=== PATIENT | male | born 1940 | race Caucasian/White ===

== ENCOUNTER → 2016-12-25 | Outpatient (CLI) | payer OTHER, MEDICARE | LOC: BMCIMAGING 12:28 | PROVIDERS: ATTEND Family Medicine | DX: S69.82XA Other specified injuries of left wrist, hand and finger(s), initial encounter (principal); S89.92XA Unspecified injury of left lower leg, initial encounter; W11.XXXA Fall on and from ladder, initial encounter ==

== ENCOUNTER 2017-07-24 16:14 | Inpatient (IN) | payer OTHER, MEDICARE ==
[2017-07-24] MEDS ORDERED: LIDOCAINE 1% 300 MG/30 ML SDV ONE (16:46)
[2017-07-24] MEDS ORDERED: fentaNYL 100 MCG/2 ML INJ ONE (16:47)
[2017-07-24] MEDS ORDERED: IOPAMIDOL (ISOVUE-370) 150 ML BTL IV ONE (16:47)
[2017-07-24] MEDS ORDERED: MIDAZOLAM 2 MG/2 ML VIAL ONE (16:48)
--- NOTE | 2017-07-24 16:54 | CPEKG ---
Heart Rate: 67 RR Interval: 896 P-R Interval: 200 QRSD Interval: 98 QT Interval: 440 QTC Interval: 465 P Saline: 69 QRS Saline: 12 T Wave Saline: 23 EKG Severity - ABNORMAL ECG - EKG Impression: SINUS RHYTHM EKG Impression: PROBABLE LEFT ATRIAL ABNORMALITY EKG Impression: LVH WITH SECONDARY REPOLARIZATION ABNORMALITY EKG Impression: ST elevation, likely secondary to LVH, consider AMI Electronically Signed By: Evon Lopez 24-Jul-2017 19:20:09
--- NOTE | 2017-07-24 17:00 | EDPHY ---
H & P Time Seen by Provider: 07/24/17 16:42 HPI/ROS: CHIEF COMPLAINT: Headache, vomiting HISTORY OF PRESENT ILLNESS: 77-year-old male with a history of hypertension presents with severe headache and vomiting. Onset of headache 5 days ago, severe and persistent since then. Associated with multiple episodes of vomiting. He has been mainly lying in bed for the past 5 days. History of uncontrolled hypertension, no prior medications. He has not seen a doctor in over 10 years. No fever, chest pain or shortness of breath. No prior known heart disease. REVIEW OF SYSTEMS: Constitutional: No fever, no recent illness Eyes: No visual changes ENT: No sore throat Respiratory: No cough, no shortness of breath Cardiac: No chest pain Gastrointestinal: no abdominal pain Genitourinary: No hematuria, no dysuria Musculoskeletal: No leg pain or swelling Skin: No rash Neurological: no numbness, no weakness Psychiatric: No depression Past Medical/Surgical History: Hypertension Social History: Smoking Status: Never smoked Physical Exam: General Appearance: Eyes closed, very hard of hearing, answers questions appropriately Eyes: Pupils equal and round, no conjunctival pallor or injection ENT, Mouth: Mucous membranes moist Neck: Normal inspection Respiratory: Lungs are clear to auscultation Cardiovascular: Regular rate and rhythm Gastrointestinal: Abdomen is soft and nontender Neurological: eyes closed, oriented x3, cranial nerves 2-12 intact, motor 5/5, sensory grossly intact Skin: Warm and dry, no rash Extremities: Nontender, no pedal edema Psychiatric: Mood and affect normal Constitutional: Initial Vital Signs Temperature (C) 36.2 C 07/24/17 16:21 Heart Rate 84 07/24/17 16:21 Respiratory Rate 16 07/24/17 16:21 Blood Pressure 206/106 H 07/24/17 16:21 O2 Sat (%) 91 L 07/24/17 16:21 O2 Delivery Mode Nasal Cannula O2 (L/minute) 2 Allergies/Adverse Reactions: No Known Allergies Allergy (Unverified 07/24/17 16:21) Home Medications: Medication Instructions Recorded Aspirin [Aspirin 325 mg (*)] 650 mg PO DAILY PRN 07/24/17 Herbals/Supplements -Info Only 1 ea PO DAILY 07/24/17 Medical Decision Making - Diagnostics EKG Interpretation: EKG interpreted by me reveals normal sinus rhythm, ST segment elevation in leads V1 through V3, LVH Imaging Results: Imaging Impressions Head CT 07/24/17 16:47 Impression: 1. No acute intracranial findings. 2. Diffuse cerebral atrophy with periventricular and subcortical low attenuation , most likely related to chronic microvascular ischemic gliosis. 3. High attenuation in normal-sized pituitary, which could be related to partial calcification, but is nonspecific. Findings discussed with Dr. Evon Lopez on July 24, 2017 at 1804 hours. Chest X-Ray 07/24/17 16:48 Impression: Borderline cardiomegaly with mild peribronchial thickening which could be related to fluid overload or mild bronchitis. ED Course/Re-evaluation: This patient presents with severe headache and vomiting and a markedly elevated blood pressure with a systolic blood pressure over 1-10. EKG is concerning for acute HI. Cardiac alert was called and the patient was seen by Dr. parkinson 0 emergency department. Stat echocardiogram revealed normal wall motion and LVH. Based on this, he will not go to the cardiac catheterization lab. He was sent for CT scan of the brain to rule out intracranial hemorrhage. Elevated blood pressure is persistent, with a systolic blood pressure of over 200, so a nicardipine drip was started. CT scan of the brain read by Dr. Duncan demonstrates microvascular disease, no acute hemorrhage or infarct. Results discussed with the patient and his . At this point, he still has a moderate headache, though the nausea has resolved. Blood pressure is 171/83. I consulted Dr. Robert for admission. The patient will be admitted to the PCU. The etiology of his headache and vomiting are most likely secondary to his severely elevated hypertension. However, there beat to be an alternative etiology for the headache, and he may need MRI of the brain if he continues to have a severe headache despite blood pressure management. Neurologic exam on serial exams remain normal. 6:30 p.m.-blood pressure is 160/79, the Cardene drip was held. Headache has completely resolved. I spent a total of 45 minutes of critical care time in obtaining history, performing a physical exam, bedside monitoring of interventions, collecting and interpreting tests and discussion with consultants but not including time spent performing procedures. Organ at risk: brain/heart Differential Diagnosis: Headache including but not limited to subarachnoid hemorrhage, migraine headache , tension headache and infectious causes such as meningitis, pharyngitis and sinusitis. - Data Points Laboratory Results: Laboratory Results 07/24/17 16:37 07/24/17 16:37 07/24/17 07/24/17 07/24/17 16:37 16:37 16:37 WBC 17.88 10^3/uL H 10^3/uL (3.80-9.50) RBC 5.35 10^6/uL 10^6/uL (4.40-6.38) Hgb 17.4 g/dL g/dL (13.7-17.5) Hct 46.9 % % (40.0-51.0) MCV 87.7 fL fL (81.5-99.8) MCH 32.5 pg pg (27.9-34.1) MCHC 37.1 g/dL H g/dL (32.4-36.7) RDW 11.7 % % (11.5-15.2) Plt Count 227 10^3/uL 10^3/uL (150-400) MPV 10.7 fL fL (8.7-11.7) Neut % (Auto) 91.3 % H % (39.3-74.2) Lymph % (Auto) 2.1 % L % (15.0-45.0) [place] % (Auto) 5.9 % % (4.5-13.0) Eos % (Auto) 0.0 % L % (0.6-7.6) Baso % (Auto) 0.1 % L % (0.3-1.7) Nucleat RBC Rel Count 0.0 % % (0.0-0.2) Absolute Neuts (auto) 16.31 10^3/uL H 10^3/uL (1.70-6.50) Absolute Lymphs (auto) 0.38 10^3/uL L 10^3/uL (1.00-3.00) Absolute Monos (auto) 1.06 10^3/uL H 10^3/uL (0.30-0.80) Absolute Eos (auto) 0.00 10^3/uL L 10^3/uL (0.03-0.40) Absolute Basos (auto) 0.02 10^3/uL 10^3/uL (0.02-0.10) Absolute Nucleated RBC 0.00 10^3/uL 10^3/uL (0-0.01) Immature Gran % 0.6 % % (0.0-1.1) Immature Gran # 0.11 10^3/uL H 10^3/uL (0.00-0.10) D-Dimer 2.94 ug/mLFEU H ug/mLFEU (0.00-0.50) Sodium 123 mEq/L L mEq/L (134-144) Potassium 3.2 mEq/L L mEq/L (3.5-5.2) Chloride 81 mEq/L L mEq/L (97-110) Carbon Dioxide 26 mEq/l mEq/l (22-31) Anion Gap 16 mEq/L mEq/L (8-16) BUN 12 mg/dL mg/dL (7-23) Creatinine 0.6 mg/dL L mg/dL (0.7-1.3) Estimated GFR > 60 Glucose 183 mg/dL H mg/dL (70-100) Calcium 9.5 mg/dL mg/dL (8.5-10.4) Phosphorus Magnesium Troponin I < 0.012 ng/mL ng/mL (0.000-0.034) NT-Pro-B Natriuret Pep 1470 pg/mL H pg/mL (0-450) Triglycerides Cholesterol Cholesterol Risk Factr LDL Cholesterol, Calc LDL Risk Factor VLDL Cholesterol Non-HDL Cholesterol HDL Cholesterol LDL/HDL Ratio Cholesterol/HDL Ratio TSH 07/24/17 16:33 WBC RBC Hgb Hct MCV MCH MCHC RDW Plt Count MPV Neut % (Auto) Lymph % (Auto) [place] % (Auto) Eos % (Auto) Baso % (Auto) Nucleat RBC Rel Count Absolute Neuts (auto) Absolute Lymphs (auto) Absolute Monos (auto) Absolute Eos (auto) Absolute Basos (auto) Absolute Nucleated RBC Immature Gran % Immature Gran # D-Dimer Sodium Potassium Chloride Carbon Dioxide Anion Gap BUN Creatinine Estimated GFR Glucose Calcium Phosphorus 3.0 mg/dL mg/dL (2.5-4.5) Magnesium 1.8 mg/dL mg/dL (1.6-2.3) Troponin I NT-Pro-B Natriuret Pep Triglycerides 51 mg/dL mg/dL (40-150) Cholesterol 182 mg/dL mg/dL (140-220) Cholesterol Risk Factr 0.4 (0.2-1.0) LDL Cholesterol, Calc 99 mg/dL mg/dL (80-100) LDL Risk Factor 0.6 (0.2-1.0) VLDL Cholesterol 10 mg/dL mg/dL (8-25) Non-HDL Cholesterol 109 mg/dL mg/dL (90-129) HDL Cholesterol 73 mg/dL H mg/dL (40-65) LDL/HDL Ratio 1.36 RATIO RATIO (1.00-3.64) Cholesterol/HDL Ratio 2.49 RATIO RATIO (1.00-4.97) TSH 1.200 uIU/mL uIU/mL (0.465-4.680) Medications Given: Discontinued Medications Nicardipine/Sodium Chloride (Cardene 0.1 Mg/Ml (Premix)) 200 mls @ 0 mls/hr IV EDNOW ONE; Titrate PRN Reason: Protocol Stop: 07/24/17 17:10 Last Admin: 07/24/17 18:54 Dose: 200 mls Sodium Chloride (Ns) 500 mls @ 1,000 mls/hr IV EDNOW ONE PRN Reason: Protocol Stop: 07/24/17 17:58 Last Admin: 07/24/17 17:35 Dose: 500 mls Ondansetron HCl (Zofran) 4 mg IVP EDNOW ONE Stop: 07/24/17 17:38 Last Admin: 07/24/17 17:37 Dose: 4 mg Departure - Departure Disposition: [facility] Acute Clinical Impression: Hypertensive crisis Condition: Serious
[2017-07-24 17:10] LABS: ANION GAP 16 mEq/L (8-16); CALCIUM 9.5 mg/dL (8.5-10.4); CARBON DIOXIDE 26 mEq/l (22-31); CHLORIDE 81 mEq/L (97-110); CREATININE 0.6 mg/dL (0.7-1.3); GLOMERULAR FILTRATION RATE > 60; GLUCOSE 183 mg/dL (70-100); POTASSIUM 3.2 mEq/L (3.5-5.2); SODIUM 123 mEq/L (134-144)
[2017-07-24] MEDS: niCARdipine/NACL 200 ML IV ONE ×2 (17:18→18:54)
[2017-07-24 17:21] LABS: TROPONIN I < 0.012 ng/mL (0.000-0.034)
--- NOTE | 2017-07-24 17:22 | PDCONSULT ---
[facility] Note: Cardiac alert notification. Cardiology Consult Reason for Consult: Cardiac alert notification with ST elevation in V1 V2 Chief Complaint: Headache Requesting Physician: Jessica History of Present Illness: 77-year-old male long history of untreated hypertension presents with a one- week history of terrible headache associated with vomiting. Patient has been in bed for the entire week. He came to the emergency department today feeling weak. Patient an EKG performed which showed ST elevation V1 V2. Cardiac alert was ordered. On my arrival the patient denies any chest pain. He has no shortness of breath. He denies PND orthopnea. He has had no palpitations syncope or near syncope. He has no focal neurologic complaints. He does have terrible headache. Patient has had longstanding hypertension which she treats by natural methods. He is not taking any medications. He has no history of hyperlipidemia. He is extraordinarily active without limitations. An echocardiogram was performed which shows concentric left ventricular hypertrophy that is moderate. His physical examination suggested a heart murmur. His consistent with aortic stenosis. This was confirmed by echo with mild aortic stenosis. At this point based on a normal echocardiogram and review of his EKG was elected to stand down the cardiac catheterization lab. There is no evidence of an acute coronary syndrome. This is more than likely hypertensive emergency/urgency. And will proceed in that manner for the time being. This was discussed with the patient's . Initial vital signs show blood pressure 210/120. Heart rate is 82. He is afebrile oxygenating normally. Respiratory rate is 16 Past Medical History PMH: Hypertension - Personal History Current Tetanus/Diphtheria Vaccine: Unsure Current Tetanus Diphtheria and Acellular Pertussis (TDAP): Unsure - Medical/Surgical History Hx Asthma: No Hx Chronic Respiratory Disease: No Hx Cardiac Disease: No Hx Diabetes: No Hx Renal Disease: No Hx Alcoholism: No Hx Cirrhosis: No Hx HIV/AIDS: No Hx Splenectomy or Spleen Trauma: No Other PMH: htn--does not take meds--controls naturally - Family History Significant Family History: No pertinent family hx - Social History Smoking Status: Never smoked Alcohol Use: None Drug Use: None Additional Social History: Review of Systems Review of Systems: - Review of Systems Constitutional: malaise, weakness. denies: chills, fever EENTM: no symptoms reported Respiratory: no symptoms reported Cardiac: no symptoms reported Gastrointestinal/Abdominal: no symptoms reported Genitourinary: no symptoms Musculoskelatal: no symptoms Skin: no symptoms Neurological: headache Hematologic/Lymphatic: no symptoms reported Immunologic/allergic: no symptoms reported Physical Exam Physical Exam: - Physical Exam General Appearance: other (Patient's eyes are closed, he is laying flat in bed without diaphoresis. He is easily responsive.) EENT: No: scleral icterus (R), scleral icterus (L) Neck: non-tender, full range of motion, supple Respiratory: chest non-tender, lungs clear, normal breath sounds Cardiac/Chest: normal peripheral pulses, regular rate, rhythm, gallop, systolic murmur. No: edema, JVD Peripheral Pulses: 1+: dorsalis-pedis (R), dorsalis-pedis (L), 2+: carotid (R), carotid (L), femoral (R), femoral (L) Abdomen: normal bowel sounds, non-tender, soft. No: bruit Back: Normal inspection. No: CVA tenderness Skin: normal color, warm/dry Lymphatic: no adenopathy Extremities: No: pedal edema, calf tenderness Neuro/Psych: alert. No: facial droop Assessment & Plan Assessment: 1. Hypertensive crisis (Acute) with abnormal ecg 2. Mild aortic stenosis 3. Headache with vomiting 4. Hyponatremia. 5. Hypokalemia. Discussion: 77-year-old male presenting with hypertensive crisis complicated by headache. EKG suggests left ventricular hypertrophy with strain and pseudo ST elevation pattern. Echocardiogram confirms left ventricular hypertrophy with mild aortic stenosis and no regional wall motion abnormalities. Recommendations are for slow and steady blood pressure control. Peak systolic pressure goal 160 tonight. Will begin with nicardipine IV and transition to oral agents tomorrow. Plan for head CT scan to rule out intracranial pathology. No evidence of angina or heart failure at this time. Until we clear his CT scan would not begin daily aspirin. Will follow serial cardiac enzymes and EKG overnight. Clinical follow-up in the ICU. Plan: Nicardipine IV for blood pressure control goal systolic pressure 160. Lab Data & Imaging Review 07/24/17 16:37 07/24/17 16:37 D-Dimer 2.94 ug/mLFEU (0.00-0.50) H 07/24/17 16:37 Sodium 123 mEq/L (134-144) L 07/24/17 16:37 Potassium 3.2 mEq/L (3.5-5.2) L 07/24/17 16:37 Chloride 81 mEq/L (97-110) L 07/24/17 16:37 Carbon Dioxide 26 mEq/l (22-31) 07/24/17 16:37 Anion Gap 16 mEq/L (8-16) 07/24/17 16:37 BUN 12 mg/dL (7-23) 07/24/17 16:37 Creatinine 0.6 mg/dL (0.7-1.3) L 07/24/17 16:37 Estimated GFR > 60 07/24/17 16:37 Glucose 183 mg/dL (70-100) H 07/24/17 16:37 Calcium 9.5 mg/dL (8.5-10.4) 07/24/17 16:37 Troponin I < 0.012 ng/mL (0.000-0.034) 07/24/17 16:37 NT-Pro-B Natriuret Pep 1470 pg/mL (0-450) H 07/24/17 16:37 Interpretation: Echocardiogram shows no pericardial effusion. Concentric left ventricular hypertrophy with preserved LV systolic function. Mild aortic stenosis. EKG additional interpertation: ECG today dated 07/24/2017 at 4:39 p.m. 51 shows sinus rhythm with left ventricular hypertrophy by voltage associated with pseudo infarct pattern with ST elevation V1 through V2
[2017-07-24] MEDS ORDERED: NS 500 ML IV ONE (17:29)
[2017-07-24 17:33] LABS: % IMMATURE GRANULYOCYTES 0.6 % (0.0-1.1); ABSOLUTE IMMATURE GRANULOCYTES 0.11 10^3/uL (0.00-0.10); ADD DIFF? NO; ADD MORPH? NO; ADD SCAN? NO; ATYPICAL LYMPHOCYTE FLAG 0 (0-99); FRAGMENT RBC FLAG 0 (0-99); HEMATOCRIT 46.9 % (40.0-51.0); HEMOGLOBIN 17.4 g/dL (13.7-17.5); LEFT SHIFT FLG 0 (0-99); LIPEMIA HEMOLYSIS FLAG 90 (0-99); MEAN CELL HEMOGLOBIN 32.5 pg (27.9-34.1); MEAN CELL HEMOGLOBIN CONCENTR. 37.1 g/dL (32.4-36.7); MEAN CELL VOLUME 87.7 fL (81.5-99.8); MEAN PLATELET VOLUME 10.7 fL (8.7-11.7); PLATELET CLUMPS FLAG 10 (0-99); PLATELET COUNT 227 10^3/uL (150-400); RED BLOOD CELL COUNT 5.35 10^6/uL (4.40-6.38); RED CELL DISTRIBUTION WIDTH 11.7 % (11.5-15.2)
[2017-07-24] MEDS ORDERED: ONDANSETRON 4 MG/2 ML VIAL ONE (17:34)
[2017-07-24] MEDS ORDERED: ONDANSETRON 4 MG/2 ML VIAL IVP ONE (17:37)
--- NOTE | 2017-07-24 17:40 | ECHO ---
[email or web address] [address] Main: [phone] Fax: [email or web address] Echocardiogram Name: SHANI TALAVERA MR#: [id number] Study Date: 07/24/2017 Study Time: 05:14 PM Date of : 1940 Age: 77 year(s) Height: 182.9 cm (72 in.) Weight: 74.84 kg (165 lb.) BSA: 1.96 m2 Gender: Male Examination: Echo Indication: Cardiac Alert, Hypertensive Crisis Image Quality: Contrast: Requested by: Evon Lopez BP: 241 mmHg/111 mmHg Heart Rate: Rhythm: Indication: Cardiac Alert, Hypertensive Crisis Procedure Staff Quality Control Expert: Benson Thacker Reading Physician: Peng Youssef Requesting Provider: Conclusions: No pericardial effusion. Moderate to severe concentric left ventricular hypertrophy normal ejection fraction of 73% with no regional wall motion abnormalities present. Diastolic dysfunction. Aortic valve calcification with mild aortic stenosis. Measurements: Chambers Valvular Assessment AV/MV Valvular Assessment TV/PV Normal Normal Normal Name Value Range Name Value Range Name Value Range Ao Jessica (MM): 3.2 cm (2.2 cm-3.7 AV Vmax: 2.94 m/s (1 m/s-1.7 TR Vmax: 2.38 mm/s ( - ) cm) m/s) TR PGmax: 23 mmHg ( - ) IVSd (2D): 1.6 cm (0.6 cm-1.1 AV maxP mmHg ( - ) syst. PAP: 28 mmHg ( - ) cm) AV meanP mmHg ( - ) PV Vmax: 0.96 m/s (0.6 m/s-0.9 LVDd (2D): 3.9 cm (4.2 cm-5.9 LVOT Vmax: 1.45 m/s (0.7 m/s-1.1 m/s) cm) m/s) PV PGmax: 4 mmHg ( - ) LVDs (2D): 2.3 cm (2.1 cm-4 RADHA (Vmax): 1.5 cm2 ( - ) cm) RADHA (VTI): 1.7 cm ( - ) LVPWd (2D): 1.5 cm (0.6 cm-1 MV E Vmax: 0.62 m/s ( - ) cm) MV A Vmax: 1.08 m/s ( - ) LVOTd 2.0 cm 2.0 cm mm MV E/A: 0.57 ( - ) LVEF (2D): 73 (>=54 %) Continued Measurements: Chambers Valvular Assessment TV/PV Name Value Name Value LADs Lon.9 cm CVP (est.): 5 mmHg LA Area: 20.9 cm2 Patient: SHANI TALAVERA Study Date: 07/24/2017 Page 1 of 2 05:14 PM Findings: Left Ventricle: Normal size left ventricle. Moderate to Severe concentric LV hypertrophy. Normal global systolic LV function. EF is 73 %. No regional wall motion abnormality. Diastolic dysfunction is present. . Right Ventricle: Normal size right ventricle. Normal RV function. Left Atrium: The left atrium is normal in size. Right Atrium: The right atrium is normal in size. Mitral Valve: The mitral valve is normal in appearance. Mild mitral valve leaflet calcification is present. Aortic Valve: There is moderate thickening of the aortic cusps. Moderate aortic cusp calcification is present. The Ao mean Pg 19mmHg with a Av Vmax of 2.9 m/s Mild calcific aortic valve stenosis. Tricuspid Valve: The tricuspid valve is normal in appearance and function. Pulmonic Valve: The pulmonic valve is normal in appearance and function. Trivial pulmonic valve regurgitation. Aorta: The aorta is normal. Pericardium: No pericardial effusion. (No Signature Object) Patient: SHANI TALAVERA Study Date: 07/24/2017 Page 2 of 2 05:14 PM [id number]
[2017-07-24] MEDS ORDERED: ONDANSETRON 4 MG/2 ML VIAL IVP PRN (18:13)
[2017-07-24] MEDS ORDERED: ONDANSETRON DISINTEGRATING 4 MG TAB PO PRN (18:13)
[2017-07-24] MEDS ORDERED: niCARdipine/NACL 200 ML IV SCH (18:30)
[2017-07-24 18:48] LABS: CHOLESTEROL 182 mg/dL (140-220); CHOLESTEROL/HDL RATIO 2.49 RATIO (1.00-4.97); HIGH DENSITY LIPOPROTEIN 73 mg/dL (40-65); LDL/HDL RATIO 1.36 RATIO (1.00-3.64); LOW DENSITY LIPOPROTEIN 99 mg/dL (80-100); MAGNESIUM 1.8 mg/dL (1.6-2.3); NON-HIGH DENSITY LIPOPROTEIN 109 mg/dL (90-129); TRIGLYCERIDE 51 mg/dL (40-150); VERY LOW DENSITY LIPOPROTEINS 10 mg/dL (8-25)
[2017-07-24] MEDS ORDERED: PROTOCOL POTASSIUM 1 DOSE MISC PRN (19:54)
[2017-07-24 19:58] LABS: COLOR YELLOW; LEUKOCYTE ESTERASE,URINE NEGATIVE (NEGATIVE); NITRITE,URINE NEGATIVE (NEGATIVE)
[2017-07-24 20:17] LABS: MUCUS TRACE /lpf (NONE-1+); RBC,URINE NONE SEEN /hpf (0-3)
--- NOTE | 2017-07-24 20:32 | GHP ---
[f rep st] HISTORY AND PHYSICAL DATE OF ADMISSION: 07/24/2017 CHIEF COMPLAINT: Headache and vomiting. HISTORY OF PRESENT ILLNESS: A 77-year-old male with a history of hypertension, diagnosed over 40 yea rs ago, for which he has never taken medications, who presents after having a month-long headache theodore t he describes as involving his entire head, that has progressed over the course of the 3 days prior to presentation, severe headache limiting activity with associated, almost intractable, nausea and vo miting. The patient has had no successful oral intake, downed a few sips of liquids provided by his over the course of the preceding 48 hours. The patient denies any chest pain. Denies shortness of breath. Described to his some gait instability in the week previous to his presentation. D enies numbness or tingling. Denies changes in his bowel habits. The patient does appear to have uri nary frequency and nocturia consistent with presumed prostate enlargement, although not diagnosed. Brad wray has a new diagnosis of cataracts, and has recently been treated with hearing aids. It was his suspicion that the combination of his hearing aids and visual deficits were leading to his headache, keeping him from presenting for earlier evaluation. PAST MEDICAL HISTORY: 1. Hypertension, untreated. 2. Cataracts. 3. Hearing loss. 4. Prostatic enlargement. SOCIAL HISTORY: Negative for tobacco, alcohol or illicit drugs. He is , lives with his of over 40 years. FAMILY HISTORY: Positive for hypertension, as well as stroke in his mother. ADVANCED DIRECTIVES: Patient is full cor, full tube. His is his medical decision maker. REVIEW OF SYSTEMS: A 10-point review of systems is negative with the exception of that reported in t he HPI. PHYSICAL EXAMINATION: VITAL SIGNS: Blood pressure on presentation is 217/111, heart rate 83, respir atory rate 19, satting 100% on 2 L, afebrile, 36.2. GENERAL: This is a thin-appearing elderly male, lying in the position in bed. HEENT: Notable for dry mucous membranes. Eyes: Negative for any icterus. CARDIAC: Patient is regular rate and rhythm. A loud systolic murmur is appreciated ac ross the right and left sternal borders. PULMONARY: Clear to auscultation bilaterally. GASTROINTES TINAL: Positive bowel sounds. ABDOMEN: Soft and nontender. MUSCULOSKELETAL: Negative for any low er extremity edema. SKIN: Negative for any rashes. NEUROLOGIC: He is alert and oriented x3, has d ense hearing loss. PSYCHIATRIC: Appears uncomfortable on my interview and examination. LABORATORY DATA: White count 17.8, hematocrit 46.9, platelets of 227. Sodium of 123, potassium of 3 .2, creatinine is 0.6. Blood glucose 183. BNP 1470. DIAGNOSTIC STUDIES: EKG, which I personally reviewed and interpreted, shows sinus rhythm. Normal ac cess, normal intervals. There is ST-elevation appreciated across the precordium consistent with LVH. Biphasic P-wave noted in V1, and U-wave in V4. Chest x-ray, which I personally reviewed and interp reted, shows no acute infiltrates. Noncontrast CT of the head shows no acute strokes or bleeds. ASSESSMENT AND PLAN: This is a 77-year-old male presenting with headache and vomiting. 1. Malignant hypertension. Patient is presenting with markedly elevated systolic blood pressures an d associated headache with nausea and vomiting. Electrocardiogram consistent with left ventricular h ypertrophy. Patient is initiated on a Cardene drip with successful control of his blood pressure, wi ll continue this upon transfer to the PCU. Patient will need to be transitioned to an oral regimen, would recommend likely the use of a combination drug such as Zestoretic, as it avoids beta-blockers, which the patient is worried could potentially slow him down, while combining 2 medications for maxim ized effect in 1 possible tablet. We will see what the patient's blood pressure does overnight befor e initiating an oral regimen. 2. Elevated BMP. A transthoracic echocardiogram was obtained from the emergency department, will fo llow with Cardiology. Patient does not have peripheral markers of heart failure and chest x-ray is n ot concerning for overt pulmonary edema. 3. Hyponatremia secondary to hypovolemia. We will cautiously rehydrate in the setting of uncontroll ed hypertension and recheck his lab values in the morning. 4. Hypokalemia in the setting of vomiting. We will replete per protocol and recheck in the morning. 5. Hyperglycemia. Patient does not carry a diagnosis of diabetes. We will send a hemoglobin A1c. 6. Acute leukocytosis. The patient does not have clear symptoms on review for occult infection. We will check a urinalysis based on his history of urinary frequency and potentially prostatic obstruct ion. Otherwise, will follow his symptoms after improved blood pressure control overnight. 7. Prophylaxis with sequential compression devices. 8. Diet: Cardiac. 9. Reported gait instability. The patient was experiencing this symptom prior to presentation. It is unclear to me if this is related to dehydration, electrolyte imbalance, or possible stroke related to his poorly controlled hypertension. We will wait to order additional brain imaging until we see the patient's neurologic examination after effective blood pressure control and rehydration. DISPOSITION: I expect greater than 2 midnights, as patient will require medication titration and pot entially additional diagnostic workup. I have discussed the case with the emergency room physician. Patient will be triaged to the PCU for Cardene drip and monitoring. /[id number]/MODL
[2017-07-24] MEDS ORDERED: POTASSIUM CL 10 MEQ TAB PO ONE (21:18)
[2017-07-24] MEDS: NS 1,000 ML IV SCH (21:30)
[2017-07-24] MEDS: ACETAMINOPHEN 325 MG TAB PO PRN (21:50)
[2017-07-25 04:51] LABS: % IMMATURE GRANULYOCYTES 0.4 % (0.0-1.1); ABSOLUTE IMMATURE GRANULOCYTES 0.06 10^3/uL (0.00-0.10); ADD DIFF? NO; ADD MORPH? NO; ADD SCAN? NO; ATYPICAL LYMPHOCYTE FLAG 0 (0-99); FRAGMENT RBC FLAG 0 (0-99); HEMATOCRIT 42.7 % (40.0-51.0); HEMOGLOBIN 15.8 g/dL (13.7-17.5); LEFT SHIFT FLG 0 (0-99); LIPEMIA HEMOLYSIS FLAG 90 (0-99); MEAN CELL HEMOGLOBIN 32.4 pg (27.9-34.1); MEAN CELL VOLUME 87.5 fL (81.5-99.8); MEAN PLATELET VOLUME 10.4 fL (8.7-11.7); PLATELET CLUMPS FLAG 0 (0-99); PLATELET COUNT 228 10^3/uL (150-400); RED BLOOD CELL COUNT 4.88 10^6/uL (4.40-6.38); RED CELL DISTRIBUTION WIDTH 11.7 % (11.5-15.2)
[2017-07-25 05:09] LABS: ALANINE AMINOTRANSFERASE 35 IU/L (21-72); ALBUMIN 3.4 g/dL (3.5-5.0); ALKALINE PHOSPHATASE 67 IU/L (38-126); ANION GAP 11 mEq/L (8-16); ASPARTATE AMINOTRANSFERASE 21 IU/L (17-59); BILIRUBIN,TOTAL 1.4 mg/dL (0.1-1.4); CARBON DIOXIDE 25 mEq/l (22-31); CHLORIDE 89 mEq/L (97-110); CREATININE 0.6 mg/dL (0.7-1.3); GLOMERULAR FILTRATION RATE > 60; GLUCOSE 126 mg/dL (70-100); POTASSIUM 3.6 mEq/L (3.5-5.2); SODIUM 125 mEq/L (134-144); TOTAL PROTEIN 6.2 g/dL (6.3-8.2)
[2017-07-25 05:12] LABS: INR 1.21 (0.83-1.16); PROTIME(PATIENT) 15.5 SEC (12.0-15.0)
--- NOTE | 2017-07-25 05:26 | PDMN ---
Medical Necessity Medical necessity: Pt meets INPT criteria per MD as of 07/24/17; est. LOS >2 MN for eval/tx of malignant hypertension, elevated BMP, hyponatremia secondary to hypovolemia, hypokalemia in the setting of vomiting, hyperglycemia, acute leukocytosis, gait instability per H&P.
[2017-07-25] MEDS ORDERED: POTASSIUM CL 10 MEQ TAB PO ONE ×2 (07:56→19:12)
[2017-07-25] MEDS: ACETAMINOPHEN 325 MG TAB PO PRN ×2 (09:29→16:56)
[2017-07-25] MEDS: ASPIRIN EC 81 MG TAB PO SCH (09:30)
[2017-07-25] MEDS: LOSARTAN POTASSIUM 50 MG TAB PO SCH (09:30)
--- NOTE | 2017-07-25 09:37 | SOAPPROG ---
SOAP Progress Note Assessment/Plan: Assessment:1. htn..crisis...long standing untreated home b/p..strong family h/o htn..pt improved today and willl start po meds and wean iv meds...hopefully home in a few days 2. hyponatremia..w/u with hospital service ...normal creat Plan:1. as ordered 07/25/17 09:35 Subjective: pt id seen with .he is doing better..b/p impogved..on low dose nicardipine...will add oral meds and follow..goal b/p 160mmhg Objective: Vital Signs Temp Pulse Resp BP Pulse Ox 37.0 C 83 22 H 165/94 H 95 07/25/17 07:49 07/25/17 07:49 07/25/17 07:49 07/25/17 08:29 07/25/17 07:49 Laboratory Results 07/25/17 04:24 07/25/17 04:24 07/24/17 07/25/17 07/26/17 05:59 05:59 05:59 Intake Total 1190 Output Total 1350 Balance -160 PT 15.5 SEC (12.0-15.0) H 07/25/17 04:24 INR 1.21 (0.83-1.16) H 07/25/17 04:24 Physical Exam - Physical Exam Respiratory: lungs clear Cardiac/Chest: regular rate, rhythm, No edema, No JVD ICD10 Worksheet Patient Problems: Problems Problem Status Onset Hypertensive crisis Acute
[2017-07-25] MEDS: NS 1,000 ML IV SCH (10:45)
--- NOTE | 2017-07-25 15:13 | HOSPPROG ---
Hospitalist Progress Note Assessment/Plan: 77 yo with a 40 year history of untreated htn is admitted with a month long headache, n/v for 3 days and abnormal gait. He has severe htn and hyponatremia on admission. # malignant htn with hypertensive encephalopathy. Discussed with Dr. Tomlinson. * Start oral medications * titrate off nicardipine * goal BP 160-170 systolic. # hyponatremia: likely multifactorial. Pt with n/v prior to admission and central encephalopathy from htn * follow sodium * check lytes and rule out other causes * has improved with IVF, so suspect some dehydration. * push oral solute intake, discussed with . # electrolyte abnormalities, replace # Hard of hearing # hypertensive encephalopathy: follow symptoms with improved BP control. Symptoms my take longer to resolve after BP stable. # Hyperglycemia: possibly from stress, will fu on HbA1C Subjective: pt new to me and chart reviewed. sleepy. no pain Objective: Vital Signs Temp Pulse Resp BP Pulse Ox 36.8 C 72 18 167/91 H 96 07/25/17 12:00 07/25/17 12:00 07/25/17 12:00 07/25/17 12:55 07/25/17 12:00 Laboratory Results 07/25/17 04:24 07/25/17 04:24 07/24/17 07/25/17 07/26/17 05:59 05:59 05:59 Intake Total 1190 Output Total 1350 200 Balance -160 -200 PT 15.5 SEC (12.0-15.0) H 07/25/17 04:24 INR 1.21 (0.83-1.16) H 07/25/17 04:24 - Physical Exam Constitutional: no apparent distress Eyes: PERRL Ears, Nose, Mouth, Throat: hard of hearing Cardiovascular: regular rate and rhythym, systolic murmur Respiratory: no respiratory distress, clear to auscultation Gastrointestinal: normoactive bowel sounds Genitourinary: no bladder fullness Skin: warm Neurologic: AAOx3, No facial droop Psychiatric: interacting appropriately, not anxious ICD10 Worksheet Patient Problems: Problems Problem Status Onset Hypertensive crisis Acute
[2017-07-25] MEDS: CARVEDILOL 6.25 MG TAB PO SCH (16:55)
[2017-07-25 18:26] LABS: POTASSIUM 3.6 mEq/L (3.5-5.2)
[2017-07-25] MEDS ORDERED: LOSARTAN POTASSIUM 50 MG TAB PO ONE (19:00)
[2017-07-25] MEDS ORDERED: hydrALAZINE 20 MG/ML VIAL IVP ONE (21:00)
[2017-07-26] MEDS: hydrALAZINE 20 MG/ML VIAL IVP PRN ×2 (00:43→14:11)
[2017-07-26] MEDS: ACETAMINOPHEN 325 MG TAB PO PRN (03:41)
[2017-07-26 05:21] LABS: CALCIUM 8.9 mg/dL (8.5-10.4); CARBON DIOXIDE 23 mEq/l (22-31); CHLORIDE 84 mEq/L (97-110); CREATININE 0.6 mg/dL (0.7-1.3); GLOMERULAR FILTRATION RATE > 60; GLUCOSE 133 mg/dL (70-100)
[2017-07-26 05:27] LABS: ANION GAP 12 mEq/L (8-16); POTASSIUM 3.4 mEq/L (3.5-5.2)
[2017-07-26 05:33] LABS: SODIUM 119 mEq/L (134-144)
--- NOTE | 2017-07-26 08:57 | SOAPPROG ---
SOAP Progress Note Assessment/Plan: Assessment:1. htn..crisis...long standing untreated home b/p..strong family h/o htn..off iv meds pt with labile htn..renal consult pending 2. hyponatremia..w/u with hospital service ...normal creat...renal consult pending Plan:1. as ordered 07/25/17 09:35 07/26/17 08:58 Subjective: pt had labile b/p over the night..c/w iv hydralazine..pt with hyponatremia..d/w dr hatfield...renal consult pending...continue a ordered...pt very hard of hearing pt has no cv c/o this AM Objective: Vital Signs Temp Pulse Resp BP Pulse Ox 36.7 C 75 20 193/111 H 91 L 07/26/17 08:24 07/26/17 08:24 07/26/17 08:24 07/26/17 08:24 07/26/17 08:24 Laboratory Results 07/25/17 04:24 07/26/17 04:20 07/25/17 07/26/17 07/27/17 05:59 05:59 05:59 Intake Total 1190 3148 Output Total 1350 1600 Balance -160 1548 PT 15.5 SEC (12.0-15.0) H 07/25/17 04:24 INR 1.21 (0.83-1.16) H 07/25/17 04:24 Physical Exam - Physical Exam Respiratory: lungs clear Cardiac/Chest: systolic murmur ICD10 Worksheet Patient Problems: Problems Problem Status Onset Hypertensive crisis Acute
[2017-07-26] MEDS ORDERED: CARVEDILOL 6.25 MG TAB PO SCH (09:07)
[2017-07-26] MEDS ORDERED: POTASSIUM CL 10 MEQ TAB PO ONE ×2 (09:58→19:30)
[2017-07-26] MEDS: ASPIRIN EC 81 MG TAB PO SCH (10:14)
[2017-07-26] MEDS: LOSARTAN POTASSIUM 50 MG TAB PO SCH (10:14)
[2017-07-26] MEDS: CARVEDILOL 6.25 MG TAB PO SCH ×3 (10:16→20:35)
--- NOTE | 2017-07-26 11:13 | HOSPPROG ---
Hospitalist Progress Note Assessment/Plan: 77 yo with a 40 year history of untreated htn is admitted with a month long headache, n/v for 3 days and abnormal gait. He has severe htn and hyponatremia on admission. Overnight he had increased blood pressure, he was given a dose of morphine and had a reaction to that with increased confusion. This morning he is oriented again. # malignant htn with hypertensive encephalopathy. Discussed with Dr. Tomlinson. * Increase the carvedilol to 12.5 mg twice a day * Continue losartan and consider adding Norvasc * Check renin and aldosterone levels * titrate off nicardipine * goal BP 160-170 systolic. # hyponatremia: likely multifactorial. Pt with n/v prior to admission and central encephalopathy from htn * follow sodium, drop last night. * Off IV fluids * Increase fluid restriction * Urine electrolytes consistent with SA ID H * Check renin and aldosterone levels * Discussed with Nephrology # BPH: Patient with urinary retention over 500 cc with difficult Burch catheterization placement. I discussed possible addition of Flomax and the and patient are resistant to any further medications despite possibly needing recurrent straight cathing. They are also not interested in any type of surgery at least for a year * Continue to monitor his bladder scans * Straight cath as needed * Continue to consider Flomax if patient is agreeable # electrolyte abnormalities, replace # Hard of hearing # hypertensive encephalopathy: follow symptoms with improved BP control. Symptoms my take longer to resolve after BP stable. # Hyperglycemia: possibly from stress, will fu on HbA1C Subjective: Very hard of hearing and sleeping. He is alert and oriented but you need to shout into his ear for him to be heard. He denies any chest pain or shortness of breath Objective: Vital Signs Temp Pulse Resp BP Pulse Ox 36.7 C 75 20 206/108 H 91 L 07/26/17 08:24 07/26/17 08:24 07/26/17 08:24 07/26/17 10:04 07/26/17 08:24 Laboratory Results 07/25/17 04:24 07/25/17 07/26/17 07/27/17 05:59 05:59 05:59 Intake Total 1190 3148 Output Total 1350 1600 Balance -160 1548 PT 15.5 SEC (12.0-15.0) H 07/25/17 04:24 INR 1.21 (0.83-1.16) H 07/25/17 04:24 - Physical Exam Constitutional: no apparent distress, not in pain Eyes: PERRL, EOMI Ears, Nose, Mouth, Throat: moist mucous membranes Cardiovascular: regular rate and rhythym, systolic murmur Respiratory: no respiratory distress, no rales or rhonchi, clear to auscultation Gastrointestinal: normoactive bowel sounds, soft, non-tender abdomen Genitourinary: no bladder fullness, other (Recent straight cathed) Skin: warm, normal color Neurologic: AAOx3 Psychiatric: interacting appropriately, other (Somnolent) ICD10 Worksheet Patient Problems: Problems Problem Status Onset Hypertensive crisis Acute
[2017-07-26 11:44] LABS: ANION GAP 9 mEq/L (8-16); CALCIUM 8.6 mg/dL (8.5-10.4); CARBON DIOXIDE 25 mEq/l (22-31); CHLORIDE 83 mEq/L (97-110); CREATININE 0.6 mg/dL (0.7-1.3); GLOMERULAR FILTRATION RATE > 60; GLUCOSE 146 mg/dL (70-100); POTASSIUM 3.2 mEq/L (3.5-5.2)
[2017-07-26 12:04] LABS: SODIUM 117 mEq/L (134-144)
--- NOTE | 2017-07-26 15:21 | ASMTCMCOM ---
CM Note CM Note Notes: 77 year old male admitted for HTN urgency, REILLY, Vomiting. He has a hx of HTN, Cataracs, [place], Prostate enlargement. Therapies have not evaluated patient. CM to follow for possible discharge needs. Date Signed: 07/26/2017 03:21 PM Electronically Signed By:Nancy Diaz LCSW
[2017-07-26] MEDS ORDERED: NS 500 ML IV ONE (15:32)
[2017-07-26] MEDS ORDERED: hydrALAZINE 20 MG/ML VIAL IVP PRN ×2 (16:14→18:10)
[2017-07-26 16:45] LABS: ANION GAP 7 mEq/L (8-16); CALCIUM 8.6 mg/dL (8.5-10.4); CARBON DIOXIDE 27 mEq/l (22-31); CHLORIDE 84 mEq/L (97-110); CREATININE 0.5 mg/dL (0.7-1.3); GLOMERULAR FILTRATION RATE > 60; GLUCOSE 135 mg/dL (70-100); POTASSIUM 3.9 mEq/L (3.5-5.2)
[2017-07-26 17:08] LABS: SODIUM 118 mEq/L (134-144)
--- NOTE | 2017-07-26 20:25 | GCON ---
[f rep st] CONSULTATION NEPHROLOGY CONSULTATION DATE OF CONSULTATION: 07/26/2017 REASON FOR CONSULTATION: Hypertension and hyponatremia. HISTORY OF PRESENT ILLNESS: I have been asked to evaluate this patient regarding both his hypertensi on and his hyponatremia. He is a 77-year-old gentleman who has been aware of a diagnosis of hyperten filiberto for decades, his estimates for 40 years. He has never been treated with antihypertensives, primarily because he does not ever see a physician. He has attempted to treat his hypertension by m aintaining what he interprets to be a healthy lifestyle. His has attempted to have him monitor his blood pressure as much as possible and she states that when it has been checked in the past, his systolic readings have typically been in the 180s. However, she also estimates that the last time hi s blood pressure was checked was at least 1 year ago. They do get labs drawn on an annual basis thro [facility] and she is unaware of any abnormal results. He has been extremely act iam and energetic for his age, however, in the past month, has been complaining of headaches. These have been associated with a decrease in his typical energy level and more recently severe nausea and vomiting, which began approximately 3 days prior to his admission on July 24. In the emergency ro om here, he was found to have a blood pressure in the 220s/110s. He was started on nicardipine drip and his blood pressure control was improved with systolic readings in the 170s. Yesterday, his nicar dipine was weaned off and he was started on losartan and carvedilol. He received a 2nd dose of losar varghese yesterday evening and this morning, his carvedilol dose was doubled from 6.25 to 12.5 mg. He did receive 1 p.r.n. dose of IV hydralazine overnight last night and then received a 2nd dose this after noon. Following this most recent dose, his blood pressure decreased from 170s to 140 and he became a cutely symptomatic with slurred speech and disorientation. He underwent an urgent noncontrast CT of the head which was unremarkable. His blood pressure has since recovered to the 160s and 170s and his believes his mental status is back to his baseline. CURRENT MEDICATIONS: Losartan 50 mg daily and carvedilol 12.5 mg twice daily. LABORATORY DATA: His serum sodium was 123 on admission Thursday evening and increased to 125 yesterday morning. He did receive IV fluids yesterday and his sodium decreased to 119 this morning. He was o n a modest fluid restriction of 1500 mL prior to today, but his oral intake greatly exceeded that yes terday by his 's estimation. His charted oral intake yesterday was 1450 cc, but she believes thi s is a tremendous underestimate. He is currently in the intensive care unit. His blood pressure ove r the past 2 hours has been in the 160s to 180s. His IV hydralazine dose has been revised. His crea tinine has been normal at 0.6 to 0.5. He has had some hypokalemia, which has been replaced on an as- needed basis. On my recommendation, plasma renin activity and aldosterone level were sent earlier to day. PAST MEDICAL HISTORY: 1. Untreated hypertension for decades, severe. 2. BPH. 3. Severe hearing loss. 4. Cataracts. PAST SURGICAL HISTORY: Vasectomy. ALLERGIES: No known drug allergies. CURRENT MEDICATIONS: Carvedilol 12.5 mg twice daily, losartan 50 mg daily, aspirin 81 mg daily, hydr alazine 5 to 10 mg IV q.1 hour p.r.n. systolic blood pressure greater than 190 or diastolic blood pre ssure greater than 108. SOCIAL HISTORY: He is originally from the [place], but has been in [place] for over 50 years. He i s retired. 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 He smoked briefly many years ago and drinks socially. FAMILY HISTORY: Negative for renal disease, but positive for multiple family members with hypertensi on. REVIEW OF SYSTEMS: Positive for headaches, nausea and vomiting prior to admission along with some in creasing fatigue. His does not believe he has had any weight loss. He has had significant hear ing loss and some visual loss over the past few months to years. He may have had some gait instabili ty prior to admission. This is not completely clear. She does believe that his headache has improve d since his hospital admission. He has chronic issues with urinary urgency that have been stable for years. He does not had any lower extremity edema. Aside from other positives on the HPI, the remai nder of a 10 organ system review is negative as reported by his . PHYSICAL EXAM: GENERAL: He is in no acute distress. VITAL SIGNS: Blood pressure 172/83, heart rat e is 77, oxygenation is 98% on room air. HEENT: Sclerae are anicteric, but conjunctivae are somewha t injected bilaterally. Oral mucosa is moist. NECK: Supple without JVD or lymphadenopathy. There a re no carotid bruits. LUNGS: Clear to auscultation bilaterally. Back: No CVA tenderness. HEART: Regular rate and rhythm, 2/6 systolic murmur. No gallops or rubs. ABDOMEN: Soft and nontender wit h normoactive bowel sounds. I do not appreciate hepatosplenomegaly, masses, or bruits. EXTREMITIES: There is no lower extremity edema. His feet are warm and appear well perfused. SKIN: There are n o skin rashes. NEURO: He does appear somewhat disoriented, but is awake and answers questions appro priately. There is no facial droop. : Burch catheter is absent. LABORATORY DATA: Sodium 118, potassium 3.9, chloride 84, CO2 27, BUN 17, creatinine 0.5, glucose 135 , calcium 8.6. Yesterday a urine osmolality was 552 with a urine sodium of 32. On admission, a urin alysis was positive for 2+ protein, trace ketones, and 3+ glucose. Of note, his serum glucose was 18 3 on admission. White blood cell count is 15.5, hemoglobin 15.8, platelets 228. An echocardiogram o n the 1st demonstrated a normal left ventricular ejection fraction with moderate to severe left ventr icular hypertrophy and diastolic dysfunction. Mild aortic stenosis was present. IMPRESSION AND PLAN: 1. Severe hypertension: This is longstanding and I suspect his systolic pressure has probably been greater than 200 for some time prior to admission. He was clearly symptomatic earlier today with a s ystolic blood pressure of 140, though it is also possible his systolic blood pressure reached a lower point than this before it was documented. He appeared to do okay with systolic pressures in the 170 s, therefore, I would try to avoid decreasing his pressure to any lower than 170. I would simply con tinue his current losartan and carvedilol dosing for now and I would reserve the use of p.r.n. hydral azine for systolic readings of greater than 200 and I would reduce the dose to 5 mg. I would avoid l owering his systolic blood pressure below 170 during this hospitalization, as this will likely take s ome time for his body to re-equilibrate. Plasma renin activity and aldosterone have been sent. If t hese are positive, then hyperaldosteronism could be evaluated. He should have some imaging of his ki dneys for completeness. I will request a renal ultrasound with Dopplers of the renal arteries. I do suspect that this is essential hypertension and we spent a large amount of time tonight discussing t he long-term adverse consequences of uncontrolled hypertension. His at least appears motivated to improve his blood pressure control, though it remains to be seen if the patient shares these feeli ngs. For now, I would be extremely reluctant to increase his medications unless he has persistent sy stolic elevations of greater than 200. 2. Hyponatremia: This is presumably relatively acute and could be related to either his recent naus ea or his headache. 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 However, his oral flui d intake yesterday appears to have been significantly greater than his 1500 cc fluid restriction and I suspect this was the main reason for the decrease in his sodium this morning. He is now on a tight er fluid restriction and I would simply continue this for now. I will repeat urine studies to see wh at his current urine concentration is. I suspect he may simply correct on his own with an appropriat e fluid restriction, though other measures such as salt tablets or low-dose Lasix may be required as well. Given his lack of medical followup over the past several decades, any firm diagnosis of syndro me of inappropriate antidiuretic hormone secretion should be evaluated more completely with a maligna ncy evaluation. At this time, I think he is at low risk for overly rapid correction and I do not fee l that frequent labs are necessary. 3. Hypokalemia: This has been replaced on an as needed basis. This should be continued. Thank you for the consultation. We will follow with you. /[id number]/MODL
[2017-07-27 00:38] LABS: HEMOGLOBIN A1C 5.4 % (4.0-6.0)
[2017-07-27 04:47] LABS: ANION GAP 9 mEq/L (8-16); CALCIUM 8.7 mg/dL (8.5-10.4); CARBON DIOXIDE 24 mEq/l (22-31); CHLORIDE 88 mEq/L (97-110); CREATININE 0.7 mg/dL (0.7-1.3); GLOMERULAR FILTRATION RATE > 60; GLUCOSE 111 mg/dL (70-100); POTASSIUM 3.7 mEq/L (3.5-5.2); SODIUM 121 mEq/L (134-144)
[2017-07-27] MEDS ORDERED: POTASSIUM CL 10 MEQ TAB PO ONE ×3 (06:48→19:02)
[2017-07-27] MEDS: ASPIRIN EC 81 MG TAB PO SCH (09:05)
[2017-07-27] MEDS: LOSARTAN POTASSIUM 50 MG TAB PO SCH (09:06)
[2017-07-27] MEDS: CARVEDILOL 6.25 MG TAB PO SCH ×3 (09:06→20:17)
--- NOTE | 2017-07-27 10:27 | SOAPPROG ---
[place] Progress Note Assessment/Plan: Assessment: 1. Hypertension He is pretty well controlled today. His partner wants him to be taking less medications so his blood pressure does not drop to the 140 range. His partner who is with him in the room says that will go to a medical doctors they have not been going for very long time. There is nothing that suggests an acute coronary syndrome, focal neurologic deficit or 1st stroke at this time. Nothing to suggest heart failure. He does have a systolic murmur. I will check and see if echoes been done. The murmur is consistent with mild aortic stenosis. He also has a soft holosystolic murmur at the left sternal border her which maybe some mitral regurgitation or tricuspid regurgitation. There is no signs of significant pulmonary hypertension. We will follow him very closely. All questions have been answered. I did review his case with the hospitalist. He has an echocardiographic study which shows very significant left ventricular hypertrophy mild aortic stenosis diastolic dysfunction among other findings. I think we want to work very hard on him to get his left ventricular hypertrophy resolved if we can possibly do that. All Plan: 07/27/17 10:26 07/27/17 10:28 Subjective: The patient is feeling well. He has no chest pain or shortness of breath He has no fevers or chills No cough No fever. He has no arm pain jaw pain. No lightheadedness dizziness No neurologic symptoms. Earlier today's blood pressure fell to the 140 range and his partner who is in the room with him felt like he seems like he was not being very responsive and she feels strongly that that was to be blood pressure dropped for him and wants cut back on the medications. The patient himself and she both agree that he is totally fine at this point time. Objective: Vital Signs Temp Pulse Resp BP Pulse Ox 36.7 C 74 23 H 184/97 H 95 07/27/17 08:00 07/27/17 10:00 07/27/17 10:00 07/27/17 10:00 07/27/17 10:00 Laboratory Results 07/25/17 04:24 07/27/17 04:20 07/26/17 07/27/17 07/28/17 05:59 05:59 05:59 Intake Total 3148 240 Output Total 1600 1575 Balance 1548 -1335 PT 15.5 SEC (12.0-15.0) H 07/25/17 04:24 INR 1.21 (0.83-1.16) H 07/25/17 04:24 Physical Exam - Physical Exam General Appearance: alert, no apparent distress Neck: supple Respiratory: rhonchi Cardiac/Chest: regular rate, rhythm, systolic murmur, No edema Abdomen: normal bowel sounds, non-tender, soft, No organomegaly Skin: warm/dry Extremities: non-tender, No calf tenderness Neuro/Psych: normal mood/affect ICD10 Worksheet Patient Problems: Problems Problem Status Onset Hypertensive crisis Acute
--- NOTE | 2017-07-27 10:55 | SOAPPROG ---
SOAP Progress Note Assessment/Plan: Assessment/Plan: HTN: likely longstanding essential hypertension. Renal US reviewed with no MANSOOR. He became symptomatic with dropping SBP to 140 yesterday, likely has been very hypertensive above 200s systolic at home for a long time. - Would recommend keeping SBP in 160-180 range, wound not drop below 160 at this time. - Will give low dose carvedilol today and monitor, can give losartan later if SBP >190. - Would reserve hydralazine only for if SBP is >200. - Will continue to monitor. Hyponatremia: repeat urine sodium down to 6, appears euvolemic, sodium up to 121 today with fluid restriction. - Would continue 1000ml fluid restriction. - Will continue to monitor sodium q12h. Hypokalemia: improved, would replace as needed. Renal cysts: one cyst on each kidney noted to have mild complexity, would recommend repeat US in 6 months to evaluate for stability. Subjective: No acute events overnight. Pt today is complaining of floaters in visual watkins , some have been going on from before but some seem new. He is hard of hearing. Objective: Vital Signs Temp Pulse Resp BP Pulse Ox 36.7 C 74 23 H 184/97 H 95 07/27/17 08:00 07/27/17 10:00 07/27/17 10:00 07/27/17 10:00 07/27/17 10:00 Laboratory Results 07/25/17 04:24 07/27/17 04:20 07/26/17 07/27/17 07/28/17 05:59 05:59 05:59 Intake Total 3148 240 Output Total 1600 1575 Balance 1548 -1335 PT 15.5 SEC (12.0-15.0) H 07/25/17 04:24 INR 1.21 (0.83-1.16) H 07/25/17 04:24 General: alert and oriented, no acute distress Eyes: EOMI, PERRL OP: clear CV: RRR Resp: nonlabored respirations Abd: Soft, NT Ext: no edema BLE Neuro: CN II-XII grossly intact except diminished hearing, no asterixis Psych: cooperative ICD10 Worksheet Patient Problems: Problems Problem Status Onset Hypertensive crisis Acute
[2017-07-27] MEDS ORDERED: CARVEDILOL 6.25 MG TAB PO SCH (10:58)
--- NOTE | 2017-07-27 11:02 | HOSPPROG ---
Hospitalist Progress Note Assessment/Plan: 77 yo with a 40 year history of untreated htn is admitted with a month long headache, n/v for 3 days and abnormal gait. He has severe htn and hyponatremia on admission. Overnight he had increased blood pressure, he was given a dose of morphine and had a reaction to that with increased confusion. This morning he is oriented again. # malignant htn with hypertensive encephalopathy. Discussed with Dr. Sotelo. Appreciate nephrology consult * Decrease Coreg to 6.25 since patient significantly symptomatic with BP at 140 * Continue losartan, was held this am for SBP = 140, can give later for SBP >190 * Check renin and aldosterone levels * Avoid hydralazine unless SBP > 200 * goal BP 160-190 systolic. * Can take weeks for his mental status to improve. # hyponatremia: likely multifactorial. Pt with n/v prior to admission and central encephalopathy from htn * continue fluid restriction * mentation is improving # BPH: Patient with urinary retention over 500 cc with difficult Burch catheterization placement. I discussed possible addition of Flomax and the and patient are resistant to any further medications despite possibly needing recurrent straight cathing. They are also not interested in any type of surgery at least for a year * Continue to monitor his bladder scans * Straight cath as needed * Continue to consider Flomax if patient is agreeable # electrolyte abnormalities, replace # Hard of hearing # hypertensive encephalopathy: follow symptoms with improved BP control. Symptoms my take longer to resolve after BP stable. # Hyperglycemia: Likely stress related, HbA1C is normal. Subjective: more alert today. no new complaints Objective: Vital Signs Temp Pulse Resp BP Pulse Ox 36.7 C 74 23 H 184/97 H 95 07/27/17 08:00 07/27/17 10:00 07/27/17 10:00 07/27/17 10:00 07/27/17 10:00 Laboratory Results 07/25/17 04:24 07/27/17 04:20 07/26/17 07/27/17 07/28/17 05:59 05:59 05:59 Intake Total 3148 240 Output Total 1600 1575 Balance 1548 -1335 PT 15.5 SEC (12.0-15.0) H 07/25/17 04:24 INR 1.21 (0.83-1.16) H 07/25/17 04:24 - Physical Exam Constitutional: no apparent distress, uncomfortable Eyes: PERRL, EOMI Ears, Nose, Mouth, Throat: hard of hearing Cardiovascular: regular rate and rhythym, systolic murmur Respiratory: no respiratory distress, no rales or rhonchi Gastrointestinal: normoactive bowel sounds, soft, non-tender abdomen, no palpable masses Skin: warm Musculoskeletal: generalized weakness Neurologic: No facial droop Psychiatric: interacting appropriately ICD10 Worksheet Patient Problems: Problems Problem Status Onset Hypertensive crisis Acute
[2017-07-27] MEDS: CALCIUM CARBONATE 500 MG CHEWABLE TAB PO PRN ×2 (12:20→18:37)
--- NOTE | 2017-07-27 16:18 | GCON ---
[f rep st] CONSULTATION PULMONARY AND CRITICAL CARE CONSULTATION DATE OF CONSULTATION: 07/27/2017 REASON FOR CONSULTATION: Evaluation and management of altered mental status in the setting of severe hypertension. HISTORY OF PRESENT ILLNESS: Mr. Barajas is a 77-year-old male with a history of hypertension for dec ades that has never been treated with medications, only with "healthy lifestyle." He has not had his blood pressure checked in over a year, but his systolic blood pressures tend to run over 180. He suazo s had headaches for the past month, as well as decreased energy and severe nausea and vomiting for th e last few days. In the emergency department, he had a blood pressure of 220/110. He was started on a nicardipine drip, which brought his systolic blood pressure down to the 170s. He was then started on losartan and carvedilol. The dose of carvedilol was increased from 6.25 to 12.5, and he received hydralazine, which resulted in a drop in his systolic blood pressure to 140, which was associated wi th slurred speech and disorientation. A CT scan was unremarkable. His blood pressure has since incr eased to the 160s to 170s, and his mental status is back to baseline. At baseline, he has some occas ional difficulty with memory, but overall he says there are no significant neurologic deficits, such as speech, memory, motor problems or mood changes. He has not walked in several days due to the naus ea and vomiting. Today, he walked and had some stumbling, so has been in bed since. REVIEW OF SYSTEMS: The 10-point review of systems is remarkable only for the presence of visual scin tillations that sound like floaters. PAST MEDICAL HISTORY: 1. Untreated hypertension. 2. BPH. 3. Severe hearing loss. MEDICATIONS: None at admission, except for aspirin. He is currently on carvedilol 6.25 twice daily. SOCIAL HISTORY: The patient lives in [place]. 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 He has a trivial hist ory of tobacco use. He drinks alcohol occasionally. FAMILY HISTORY: Unremarkable. REVIEW OF SYSTEMS: A 10-point review of systems adds nothing to the history of present illness. PHYSICAL EXAMINATION: GENERAL: The patient is awake, alert, and in no acute distress. VITAL SIGNS: Blood pressure is 141/70 with a heart rate of 79. He is afebrile. Oxygen saturations are 96% on r oom air. HEENT: Normocephalic and atraumatic. No icterus. NECK: No adenopathy. Trachea is midli ne. CHEST: Clear to auscultation. CARDIAC: Regular rate and rhythm without murmur. ABDOMEN: Sof t, nontender. Bowel sounds are present. EXTREMITIES: No clubbing, cyanosis, or edema. NEUROLOGIC: The patient is quite hard of hearing, but is able to follow commands. He has no gross motor or sen stephen deficits. LABORATORY DATA: A white blood count is 15.5, down from 17.9. Platelet count is 228 with a hemoglob in of 15.8. Sodium is 121, up from 117 at admission. His potassium is 3.7, creatinine 0.7. Urine s odium is 6. Urinalysis is positive for 2+ protein. Urine osmolality is 612. A CT scan of the head from July 26, shows no acute intracranial abnormalities. Images are revie wed by me. His initial CT scan showed similar findings, which included diffuse cerebral atrophy with findings typical for chronic microvascular ischemic changes. ASSESSMENT: 1. Altered mental status. This occurred in the setting of relative hypertension, with blood pressur e being brought down from the 220s down to 140. This has since improved, although his blood pressure still is in the 140s. The goal is to keep his blood pressure in the 170-190 range for the immediate future. Neurological function appears to have returned to normal despite his blood pressure running slightly lower than his goal blood pressure. 2. Gait instability. This may be due to deconditioning from being in bed for several days and havin g nausea and vomiting, but he also possibly may have had some neurologic sequelae from his chronic hy pertension and acute relative hypotension that has increased his gait instability. 3. Hematuria. The patient has had some hematuria since being straight catheterized a few days ago. However, he has been able to void. 4. Visual scintillations suggestive of floaters. 5. Hyponatremia. This is not responding to fluid restriction and being monitored by Nephrology. RECOMMENDATIONS: 1. Continue low-dose Coreg with close monitoring of blood pressure. 2. PT and OT consultations. 3. Consider ophthalmology consultation for visual scintillations. 4. Fluid restriction and follow serum sodium, as per Nephrology. /[id number]/MODL
[2017-07-27 18:56] LABS: ALBUMIN 2.9 g/dL (3.5-5.0); ANION GAP 8 mEq/L (8-16); CALCIUM 8.7 mg/dL (8.5-10.4); CARBON DIOXIDE 26 mEq/l (22-31); CHLORIDE 90 mEq/L (97-110); CREATININE 0.7 mg/dL (0.7-1.3); GLOMERULAR FILTRATION RATE > 60; GLUCOSE 108 mg/dL (70-100); POTASSIUM 3.4 mEq/L (3.5-5.2); SODIUM 124 mEq/L (134-144)
[2017-07-27] MEDS ORDERED: SUCRALFATE 1 GM/10 ML UDCUP PO PRN (22:42)
[2017-07-28 04:11] LABS: ALBUMIN 3.1 g/dL (3.5-5.0); ANION GAP 11 mEq/L (8-16); CALCIUM 8.8 mg/dL (8.5-10.4); CARBON DIOXIDE 24 mEq/l (22-31); CHLORIDE 95 mEq/L (97-110); CREATININE 0.8 mg/dL (0.7-1.3); GLOMERULAR FILTRATION RATE > 60; GLUCOSE 108 mg/dL (70-100); POTASSIUM 3.8 mEq/L (3.5-5.2); SODIUM 130 mEq/L (134-144)
[2017-07-28] MEDS ORDERED: POTASSIUM CL 10 MEQ TAB PO ONE ×2 (06:43→21:39)
[2017-07-28] MEDS: MBX SOLN 30 ML BOTTLE PO PRN ×2 (08:09→13:23)
[2017-07-28] MEDS: ASPIRIN EC 81 MG TAB PO SCH (08:11)
[2017-07-28] MEDS: LOSARTAN POTASSIUM 50 MG TAB PO SCH (08:11)
[2017-07-28] MEDS: CARVEDILOL 6.25 MG TAB PO SCH ×2 (08:22→17:42)
--- NOTE | 2017-07-28 11:02 | HOSPPROG ---
Hospitalist Progress Note Assessment/Plan: 77 yo with a 40 year history of untreated htn is admitted with a month long headache, n/v for 3 days and abnormal gait. He has severe htn and hyponatremia on admission. His mental status is slowly improving. He continues to be somewhat confused and weak however it is difficult to assess due to his severe hearing loss. His continues to be very concerned and is requesting Neurology consult to rule out strokes. # malignant htn with hypertensive encephalopathy. * Currently on Coreg 6.25 and losartan 50 mg daily blood pressures generally run in the 160-180 range although he has had some in the 130s to 140s he has not been symptomatic with these recent drops. * Continue losartan, was held this am for SBP = 140, can give later for SBP >190 * Check renin and aldosterone levels * Avoid hydralazine unless SBP > 200 * goal BP 160-190 systolic. * Can take weeks for his mental status to improve. * Will have Neurology consult for ongoing symptoms of encephalopathy that I suspect are multifactorial due to hyponatremia as well as hypertensive encephalopathy. # hyponatremia: likely multifactorial. Pt with n/v prior to admission and central encephalopathy from htn. Much improved today * continue fluid restriction, consider loosening fluid restriction given improved sodium * mentation is improving # BPH: Patient with urinary retention over 500 cc with difficult Burch catheterization placement. I discussed possible addition of Flomax and the and patient are resistant to any further medications despite possibly needing recurrent straight cathing. They are also not interested in any type of surgery at least for a year * Continue to monitor his bladder scans * Straight cath as needed * Continue to consider Flomax if patient is agreeable # electrolyte abnormalities, replace # Hard of hearing # hypertensive encephalopathy: follow symptoms with improved BP control. Symptoms my take longer to resolve after BP stable. # Hyperglycemia: Likely stress related, HbA1C is normal. Disposition: Will likely be discharged home once his blood pressure stabilized on oral medication use and he is improved mentally. I suspect 1-2 do well. Subjective: Much more alert today, denies pain, his floaters in his vision have improved. Objective: Vital Signs Temp Pulse Resp BP Pulse Ox 36.8 C 64 15 133/81 H 94 07/28/17 08:00 07/28/17 10:00 07/28/17 08:00 07/28/17 10:00 07/28/17 08:00 Laboratory Results 07/25/17 04:24 07/28/17 03:50 07/27/17 07/28/17 07/29/17 05:59 05:59 05:59 Intake Total 240 590 100 Output Total 1575 1450 200 Balance -1335 -860 -100 PT 15.5 SEC (12.0-15.0) H 07/25/17 04:24 INR 1.21 (0.83-1.16) H 07/25/17 04:24 - Physical Exam Constitutional: no apparent distress, unkempt Eyes: PERRL, anicteric sclera, EOMI Ears, Nose, Mouth, Throat: moist mucous membranes, hard of hearing Cardiovascular: regular rate and rhythym, systolic murmur Respiratory: no respiratory distress, clear to auscultation Gastrointestinal: normoactive bowel sounds, No tenderness Genitourinary: no bladder fullness Skin: warm Musculoskeletal: generalized weakness Neurologic: AAOx3 Psychiatric: interacting appropriately ICD10 Worksheet Patient Problems: Problems Problem Status Onset Hypertensive crisis Acute
--- NOTE | 2017-07-28 11:06 | SOAPPROG ---
SOAP Progress Note Assessment/Plan: Assessment: 1. HTN Longstanding poorly controlled HTN with almost certain arteriolosclerosis. Our goal SBP shoulg be 160 to 190. He appears very sensitive to even low doses of carvedilol. Will lower BP doses, and educate patient and family re CV disease, goals of therapy, target BP's. 2. MS, visual symptoms He has had some actual diplopia, dizziness, but has also had probable delerium. Actual neuro symptoms may have been perfusion related. Today, he is A&O at the time of my visit. 3. Hyponatremia He only acutely went down into teens. I view him as correcting appropriately, and at low risk of ODS. I will stop fluid restriction and follow. Plan: 07/28/17 11:02 Subjective: Doing some better Objective: Vital Signs Temp Pulse Resp BP Pulse Ox 36.8 C 64 15 133/81 H 94 07/28/17 08:00 07/28/17 10:00 07/28/17 08:00 07/28/17 10:00 07/28/17 08:00 Laboratory Results 07/25/17 04:24 07/28/17 03:50 07/27/17 07/28/17 07/29/17 05:59 05:59 05:59 Intake Total 240 590 100 Output Total 1575 1450 200 Balance -1335 -860 -100 PT 15.5 SEC (12.0-15.0) H 07/25/17 04:24 INR 1.21 (0.83-1.16) H 07/25/17 04:24 Physical Exam - Physical Exam General Appearance: no apparent distress, cachetic Respiratory: lungs clear Cardiac/Chest: regular rate, rhythm Extremities: normal inspection Neuro/Psych: oriented x 3 ICD10 Worksheet Patient Problems: Problems Problem Status Onset Hypertensive crisis Acute
--- NOTE | 2017-07-28 12:43 | SOAPPROG ---
XIANG Progress Note Assessment/Plan: Assessment: 1. Hypertension Plan: 07/27/17 10:26 07/27/17 10:28 07/28/17 12:41 Hypertension He is doing well today on the current adjustment of medications. I agree with Dr. Church about what our goal should be. I have answered all the patient's questions. Down the road he needs to have a nuclear stress test looking for coronary artery disease a We also really want to see what his lipids are as an outpatient to do everything we can for prevention of coronary disease. He Subjective: He is doing well today. He has no chest pain or chest tightness He is not feeling dizzy He is taking his medication acceptably. He has no new complaints . He tells me he has no nausea. Objective: Vital Signs Temp Pulse Resp BP Pulse Ox 36.9 C 65 18 140/91 H 94 07/28/17 11:54 07/28/17 11:54 07/28/17 11:54 07/28/17 11:54 07/28/17 11:54 Laboratory Results 07/25/17 04:24 07/28/17 03:50 07/27/17 07/28/17 07/29/17 05:59 05:59 05:59 Intake Total 240 590 200 Output Total 1575 1450 350 Balance -1335 -860 -150 PT 15.5 SEC (12.0-15.0) H 07/25/17 04:24 INR 1.21 (0.83-1.16) H 07/25/17 04:24 Physical Exam - Physical Exam General Appearance: alert Respiratory: rhonchi Cardiac/Chest: regular rate, rhythm, systolic murmur, No JVD Abdomen: non-tender, soft, No organomegaly Skin: warm/dry Extremities: No calf tenderness Neuro/Psych: alert ICD10 Worksheet Patient Problems: Problems Problem Status Onset Hypertensive crisis Acute
[2017-07-28] MEDS ORDERED: ALBUMIN 25% 100 ML IV ONE (16:16)
[2017-07-28 17:13] LABS: ANION GAP 8 mEq/L (8-16); CALCIUM 8.5 mg/dL (8.5-10.4); CARBON DIOXIDE 25 mEq/l (22-31); CHLORIDE 94 mEq/L (97-110); CREATININE 0.8 mg/dL (0.7-1.3); GLOMERULAR FILTRATION RATE > 60; GLUCOSE 120 mg/dL (70-100); POTASSIUM 3.5 mEq/L (3.5-5.2); SODIUM 127 mEq/L (134-144)
--- NOTE | 2017-07-28 17:38 | NEUROPROG ---
Assessment: [id number] CC: Hypertensive Encephalopathy HPI: Pt with long-standing untreated hypertension (average systolic 180). For the month prior to admission he complained of headaches, fatigue, and N/V. Went to [facility] on 07/24/17 and noted to have bp of 220/110. A head CT was unremarkable. He was placed in the ER and treated with slowly improving blood pressure. He has been confused at times but was improving. He was felt to have hypertensive encephalopathy but his wanted to see a neurologist to ensure it is not a stroke. I initially saw the patient on 07/28/17. His noted he seemed to become confused when he got a dose of hydralazine a few days ago. He also has complained of seeing scotomas in his vision. He feels much better today. His neurologic exam was normal other than showing some confusion on date and poor hearing. PMHx: untreated HTN, BPH, severe hearing loss Home Meds: aspirin SHx: FHx: NC ROS: Pt denied acute fever, total vision loss, active severe chest pain, respiratory failure, total body severe rash, total bowel/bladder incontinence, psychosis, active seizures, or active bleeding O: VS reviewed General: Drowsy Eyes: Fundoscopic exam not able to visualize optic disks CV: Heart RRR, no murmur, no carotid bruit Lungs: Clear to auscultation bilaterally, no rhonchi or rales Neuro: - Mental: . Oriented x person/place but not date . concentration appears reduced . speech fluency/comprehension normal . memory appears reduced . fund of knowledge appear intact - Cranial Nerves: . II: PERRL, VFFTC . III/IV/: EOMI, no nystagmus, normal smooth pursuits, no Ptosis . V: facial sensation intact to LT . VII: face symmetric to eye closure and smile . VIII: hearing intact to conversation . IX/X: uvula raises symmetrically . XI: SCM 5/5 B/L strength . XII: tongue protrudes midline w/nl strength - Motor: . Tone: normal tone in all 4 extremity . Strength: no pronator drift, strength 5/5 throughout (B/L delt, bic, tri, hand double corner cutter, hf/he, df/pf) - Reflexes: B/L bic/BR/patella 2/4 - Sensory: all 4 extremity intact to light touch - Coord: [id number] wnl, MOOKIE wnl, [id number] wnl - Gait: deferred - NIH SS 1 (wrong month) Labs: 07/24/17- LDL 99 07/25/17- CBC WBC 15.48, H1AC 5.4 07/28/17- Chem Na 130L Cl 95L Rads: 07/24/17- TTE: no pericardial effusion, mod to severe conc LVH, EF 73%, diastolic dysfunc, aortic valve calcification w/mild aortic stenosis 07/26/17- Head CT: Senescent features, with no acute intracranial abnormality identified on this unenhanced CT evaluation, or substantial change from 07/24/2017. (I personally visualized the images on 07/28/17) 07/27/17- 24 hour telemetry: no afib noted Assessment: 1. Hypertensive Encephalopathy: Clinical history supports this diagnosis but patients would like to fully exclude stroke so will check brain MRI. 2. Hyponatremia: Managed by hospitalist Plan: - Agree with treatment of HTN - Brain MRI w/o con to evaluate for stroke - If brain MRI unremarkable and patient doing well neurologically then no further inpatient w/u needed - F/U in neurology clinic 2-4 weeks after hospital discharge Neurology will review brain MRI and if unremarkable will sign off. Please reconsult for change in neurologic status of if anything is needed. Objective: Vital Signs Temp Pulse Resp BP Pulse Ox 37.1 C 70 14 122/61 H 94 07/28/17 15:50 07/28/17 15:50 07/28/17 15:50 07/28/17 16:00 07/28/17 15:50 Laboratory Results 07/25/17 04:24 07/28/17 16:25 07/27/17 07/28/17 07/29/17 05:59 05:59 05:59 Intake Total 240 590 200 Output Total 1575 1450 350 Balance -1335 -860 -150 PT 15.5 SEC (12.0-15.0) H 07/25/17 04:24 INR 1.21 (0.83-1.16) H 07/25/17 04:24 Allergies/Adverse Reactions: No Known Allergies Allergy (Unverified 07/24/17 16:21)
[2017-07-28 20:50] LABS: ALBUMIN 2.8 g/dL (3.5-5.0); ANION GAP 9 mEq/L (8-16); CALCIUM 8.5 mg/dL (8.5-10.4); CARBON DIOXIDE 28 mEq/l (22-31); CHLORIDE 93 mEq/L (97-110); CREATININE 0.8 mg/dL (0.7-1.3); GLOMERULAR FILTRATION RATE > 60; GLUCOSE 95 mg/dL (70-100); POTASSIUM 3.7 mEq/L (3.5-5.2); SODIUM 130 mEq/L (134-144)
[2017-07-29 09:27] LABS: ALBUMIN 2.6 g/dL (3.5-5.0); ANION GAP 9 mEq/L (8-16); CALCIUM 8.3 mg/dL (8.5-10.4); CARBON DIOXIDE 25 mEq/l (22-31); CHLORIDE 99 mEq/L (97-110); CREATININE 0.7 mg/dL (0.7-1.3); GLOMERULAR FILTRATION RATE > 60; GLUCOSE 89 mg/dL (70-100); POTASSIUM 3.7 mEq/L (3.5-5.2); SODIUM 133 mEq/L (134-144)
[2017-07-29 10:17] LABS: ALANINE AMINOTRANSFERASE 33 IU/L (21-72); ALKALINE PHOSPHATASE 50 IU/L (38-126); ASPARTATE AMINOTRANSFERASE 19 IU/L (17-59); BILIRUBIN,TOTAL 1.1 mg/dL (0.1-1.4); TOTAL PROTEIN 4.9 g/dL (6.3-8.2)
[2017-07-29] MEDS: MBX SOLN 30 ML BOTTLE PO PRN ×3 (10:24→22:17)
[2017-07-29] MEDS: ASPIRIN EC 81 MG TAB PO SCH (10:28)
[2017-07-29] MEDS: CARVEDILOL 6.25 MG TAB PO SCH ×2 (10:28→19:11)
--- NOTE | 2017-07-29 10:36 | SOAPPROG ---
XIANG Progress Note Assessment/Plan: Assessment: 1. Hypertension Plan: 07/27/17 10:26 07/27/17 10:28 07/28/17 12:41Cardiology ; Bp is responding to his meds . He will obviously have times of elevated pressures. Will sign off at this point Please let us know if we can help anytime. As outpt needs his pcp to order nuc ett and lipids . will discuss w hospitalist - who is beside me but on a call obviously very sad MRI results. 07/29/17 10:33 07/29/17 10:36 Objective: Vital Signs Temp Pulse Resp BP Pulse Ox 37.1 C 69 14 156/106 H 96 07/29/17 07:26 07/29/17 07:26 07/29/17 07:26 07/29/17 10:28 07/29/17 07:26 Laboratory Results 07/25/17 04:24 07/29/17 08:44 07/28/17 07/29/17 07/30/17 05:59 05:59 05:59 Intake Total 590 1100 Output Total 1450 1225 Balance -860 -125 PT 15.5 SEC (12.0-15.0) H 07/25/17 04:24 INR 1.21 (0.83-1.16) H 07/25/17 04:24 ICD10 Worksheet Patient Problems: Problems Problem Status Onset Hypertensive crisis Acute
--- NOTE | 2017-07-29 10:49 | SOAPPROG ---
XIANG Progress Note Assessment/Plan: Assessment: 1. Hypertension Plan: 07/27/17 10:26 07/27/17 10:28 07/28/17 12:41Cardiology ; Bp is responding to his meds . He will obviously have times of elevated pressures. Will sign off at this point Please let us know if we can help anytime. As outpt needs his pcp to order nuc ett and lipids . will discuss w hospitalist - who is beside me but on a call obviously very sad MRI results. 07/29/17 10:33 07/29/17 10:36 07/29/17 10:46 Have discussed his case w his all ?'s answered. neuro is taking care of neuro issues she has strong feelings re when and what bp meds he should get she will discuss c hosp - they will follow w pcp as she has so many ?'s weach bp kalyan that will get her the best results she will see that pcp orders lexiscan and be in touch if abnl Discussed w hospitalist will sign off. Objective: Vital Signs Temp Pulse Resp BP Pulse Ox 37.1 C 69 14 156/106 H 96 07/29/17 07:26 07/29/17 07:26 07/29/17 07:26 07/29/17 10:28 07/29/17 07:26 Laboratory Results 07/25/17 04:24 07/29/17 08:44 07/28/17 07/29/17 07/30/17 05:59 05:59 05:59 Intake Total 590 1100 Output Total 1450 1225 Balance -860 -125 PT 15.5 SEC (12.0-15.0) H 07/25/17 04:24 INR 1.21 (0.83-1.16) H 07/25/17 04:24 ICD10 Worksheet Patient Problems: Problems Problem Status Onset Hypertensive crisis Acute
[2017-07-29] MEDS ORDERED: POTASSIUM CL 10 MEQ TAB PO ONE (12:27)
--- NOTE | 2017-07-29 13:24 | SOAPPROG ---
SOAP Progress Note Assessment/Plan: Assessment: HTN better encephalopathy hyponatremia better Plan: try to keep SBP in the 140's-160's/80-low 90's continue coreg as is nice discussion with his , all questions answered to her satisfaction 07/29/17 13:19 Subjective: resting for the first time today, asked that I not wake him Objective: Vital Signs Temp Pulse Resp BP Pulse Ox 37.0 C 69 18 138/79 H 93 07/29/17 11:31 07/29/17 11:31 07/29/17 11:31 07/29/17 11:31 07/29/17 11:31 Laboratory Results 07/25/17 04:24 07/29/17 08:44 07/28/17 07/29/17 07/30/17 05:59 05:59 05:59 Intake Total 590 1100 Output Total 1450 1225 Balance -860 -125 PT 15.5 SEC (12.0-15.0) H 07/25/17 04:24 INR 1.21 (0.83-1.16) H 07/25/17 04:24 Physical Exam - Physical Exam General Appearance: other (resting) Respiratory: No rhonchi, No wheezing Cardiac/Chest: regular rate, rhythm Abdomen: soft Neuro/Psych: other (resting) ICD10 Worksheet Patient Problems: Problems Problem Status Onset Hypertensive crisis Acute
--- NOTE | 2017-07-29 14:45 | NEUROPROG ---
Assessment: Reviewed brain MRI and no acute stroke or other acute findings. Old, small punctate hemorrhage in brainstem likely from hypertension. Treatment is focused on good blood pressure control with goal < 140/90. No further inpt w/u needed at this time. F/U 2-4 weeks after discharge with me in neurology clinic. Call for any change in neurostatus or if any help needed. Objective: Vital Signs Temp Pulse Resp BP Pulse Ox 37.0 C 69 18 161/85 H 93 07/29/17 11:31 07/29/17 11:31 07/29/17 11:31 07/29/17 14:33 07/29/17 11:31 Laboratory Results 07/25/17 04:24 07/29/17 08:44 07/28/17 07/29/17 07/30/17 05:59 05:59 05:59 Intake Total 590 1100 Output Total 1450 1225 Balance -860 -125 PT 15.5 SEC (12.0-15.0) H 07/25/17 04:24 INR 1.21 (0.83-1.16) H 07/25/17 04:24 Allergies/Adverse Reactions: No Known Allergies Allergy (Unverified 07/24/17 16:21)
[2017-07-29 14:52] LABS: ALDOSTERONE SERUM <4.0 ng/dL (<=21)
--- NOTE | 2017-07-29 16:34 | ASMTCMCOM ---
CM Note CM Note Notes: Spoke w/pt and re; [facility]. Long conversation, willing but feels pt will want to go home. PT explained benefits of structured therapies in the senior living. CM spoke wMD and Ama at [facility], will shoot for Thursday. Ama will run benefits, CM w/f in am. DC Plan: [facility] Date Signed: 07/29/2017 04:34 PM Electronically Signed By:Sophie Elena RN
[2017-07-29] MEDS ORDERED: MELATONIN 3 MG TAB PO PRN (21:18)
--- NOTE | 2017-07-29 21:31 | HOSPPROG ---
Hospitalist Progress Note Assessment/Plan: Assessment: 77 yo M p/w hypertensive emergency and resultant acute encephalopathy Plan: # HTN emergency. Evidenced by SBP 210s w/ end organ failure (encephalopathy), likely 2/2 uncontrolled/untreated HTN and possibly acute rise in setting of microvascular ischemia - MRI w/o overt CVA, significant microvascular disease indicating his HTN has been untreated for quite some time - responsive to anti-HTN Rx, dosage to coreg reduced to 3.125 bid to keep SBP in target range of 160-190 and avoid watershed ischemia from rapid drop in SBP - eventual goal will be < 140, but this should be outpatient target and he should experience movement towards that goal over span of weeks - d/w both Dr. Sotelo and Dr. Palomino, do not recommend changes to above Rx at this time - patient will f/u Dr. Youssef as outpt # Acute encephalopathy. Evidenced by confusion, somnolence, disrupted level of interactiveness, all of which is a change from his baseline and 2/2 acute HTN emergency/pressure changes, potentially exacerbated by too rapid reduction in SBP - this has effected patient's appetite, sleep, and resulted in easy irritability - counseled patient and that we can focus on supportive/symptomatic care for certain discomforts like his esophageal discomfort (from vomiting), hiccups (thorazine PRN), and sleep (reduce interruptions o/n and provide melatonin PRN) - patient will likely require inpatient rehab, and plan is to reassess him for appropriateness tomorrow # Hyponatremia. Acute, potentially 2/2 hypovolemia in setting of N/V, s/p NS and now that he is euvolemic, on fluid restriction - currently 1.8L/day, if increasing hunger/thirst, liberalize - monitor daily level # Chronic BPH. Patient with urinary retention over 500 cc with difficult Burch catheterization placement - cont discussion re: straight cath vs. flomax Diet. Regular as nayeli PPx. SCDs, hold pharm given SBP Code. Full Dispo. ADD 07/31, pending stabilization of above. Subjective: patient w/ sore throat Objective: Vital Signs Temp Pulse Resp BP Pulse Ox 37.1 C 69 17 155/91 H 94 07/29/17 20:00 07/29/17 20:00 07/29/17 20:00 07/29/17 20:00 07/29/17 20:00 Laboratory Results 07/25/17 04:24 07/29/17 08:44 07/28/17 07/29/17 07/30/17 05:59 05:59 05:59 Intake Total 590 1100 1000 Output Total 1450 1225 700 Balance -860 -125 300 PT 15.5 SEC (12.0-15.0) H 07/25/17 04:24 INR 1.21 (0.83-1.16) H 07/25/17 04:24 - Time Spent With Patient Time Spent with Patient: greater than 35 minutes Time Spent with Patient: Greater than 35 minutes spent on this patients care, greater than 50% of time spent counseling, educating, and coordinating care regarding the above mentioned plan. - Pending Discharge Pending Discharge Within 48 Hours: Yes Pending Discharge Date: 07/31/17 Pending Discharge Time: 11:00 - Physical Exam Constitutional: uncomfortable, No not in pain (mild) Neurologic: AAOx3, other, No facial droop Psychiatric: anxious, flat affect, other (concentration 7/7), No agitated ICD10 Worksheet Patient Problems: Problems Problem Status Onset Hypertensive crisis Acute
[2017-07-29] MEDS ORDERED: LIDOCAINE 2% VISCOUS 15 ML UDCUP PO PRN (21:32)
[2017-07-29] MEDS ORDERED: chlorproMAZINE HCL 25 MG TAB PO PRN (21:33)
[2017-07-30 06:00] LABS: ANION GAP 9 mEq/L (8-16); CALCIUM 8.1 mg/dL (8.5-10.4); CARBON DIOXIDE 26 mEq/l (22-31); CHLORIDE 99 mEq/L (97-110); CREATININE 0.8 mg/dL (0.7-1.3); GLOMERULAR FILTRATION RATE > 60; GLUCOSE 77 mg/dL (70-100); POTASSIUM 3.6 mEq/L (3.5-5.2); SODIUM 134 mEq/L (134-144)
[2017-07-30 10:01] LABS: RENIN ACTIVITY PLASMA 0.7 ng/mL/h
[2017-07-30] MEDS: PANTOPRAZOLE SODIUM 40 MG VIAL IVP SCH (10:04)
[2017-07-30] MEDS: CARVEDILOL 6.25 MG TAB PO SCH ×2 (10:05→18:06)
[2017-07-30] MEDS: MBX SOLN 30 ML BOTTLE PO PRN (10:57)
--- NOTE | 2017-07-30 13:39 | SOAPPROG ---
SOAP Progress Note Assessment/Plan: Assessment: HTN better encephalopathy, patient and feel like it is better, still clearly not at baseline, however hyponatremia continues to get better Plan: try to keep SBP in the 140's-160's/80-low 90's continue coreg as is nice discussion with Michele and his , all questions answered to their satisfaction would like to follow up with me in [place] needs to check and record his BP at home 2-3 times weekly until he sees me 07/29/17 13:19 07/30/17 13:35 Subjective: feeling overall better denies cp sob nausea or vomiting still having trouble with constipation, but appetite is improving spirits good energy getting better slept well last night Objective: Vital Signs Temp Pulse Resp BP Pulse Ox 36.9 C 70 18 162/92 H 96 07/30/17 07:36 07/30/17 07:36 07/30/17 07:36 07/30/17 07:36 07/30/17 07:36 Laboratory Results 07/25/17 04:24 07/30/17 04:56 07/29/17 07/30/17 07/31/17 05:59 05:59 05:59 Intake Total 1100 1400 Output Total 1225 1150 100 Balance -125 250 -100 PT 15.5 SEC (12.0-15.0) H 07/25/17 04:24 INR 1.21 (0.83-1.16) H 07/25/17 04:24 Physical Exam - Physical Exam General Appearance: WD/WN, alert, thin Respiratory: lungs clear, No rhonchi, No wheezing Cardiac/Chest: regular rate, rhythm, No edema, No friction rub Abdomen: normal bowel sounds, non-tender, soft Extremities: No swelling Neuro/Psych: alert, normal mood/affect, oriented x 3 ICD10 Worksheet Patient Problems: Problems Problem Status Onset Hypertensive crisis Acute
--- NOTE | 2017-07-30 16:08 | ASMTCMCOM ---
CM Note CM Note Notes: MD had extensive conversation with pt and regarding [facility] and Ama from rehab came to see pt. Ama expressed to pt the benefits of the structured schedule at [facility] and that she anticipated a stay of 5-7 days. Pt's told CM that he would commit to 7 days. CM and to work out transportation in am. DC Plan: [facility] Thursday Date Signed: 07/30/2017 04:07 PM Electronically Signed By:Sophie Elena RN
--- NOTE | 2017-07-30 18:41 | HOSPPROG ---
Hospitalist Progress Note Assessment/Plan: Assessment: 77 yo M p/w hypertensive emergency and resultant acute encephalopathy Plan: # HTN emergency. Evidenced by SBP 210s w/ end organ failure (encephalopathy), likely 2/2 uncontrolled/untreated HTN and possibly acute rise in setting of microvascular ischemia - MRI w/o overt CVA, significant microvascular disease indicating his HTN has been untreated for quite some time - responsive to anti-HTN Rx, dosage to coreg reduced to 3.125 bid to keep SBP in target range of 160-190 and avoid watershed ischemia from rapid drop in SBP - counseled patient that eventual goal will be < 140, but this should be outpatient target and he should experience movement towards that goal over span of weeks - range o/n 126-162, unclear how many doses of coreg he has received, will investigate - counseled patient that as outpt, ambulatory BP monitoring can be useful to help dose Rx - avoid ASA in short term given small hemorrhage on MRI # Acute encephalopathy. Evidenced by confusion, somnolence, disrupted level of interactiveness, all of which is a change from his baseline and 2/2 acute HTN emergency/pressure changes, potentially exacerbated by too rapid reduction in SBP - this has effected patient's appetite, sleep, and resulted in easy irritability - cont supportive/symptomatic care for certain discomforts like his esophageal discomfort (from vomiting), hiccups (thorazine PRN), and sleep (reduce interruptions o/n and provide melatonin PRN) - counseled patient and extensively about possible benefits of inpt rehab, and he qualifies # Hyponatremia. Acute, potentially 2/2 hypovolemia in setting of N/V, s/p NS and now that he is euvolemic, off fluid restriction - monitor daily level # Chronic BPH. Patient with urinary retention over 500 cc with difficult Burch catheterization placement - cont discussion re: straight cath vs. flomax # Esophagitis. 2/2 vomiting, started on PPI to reduce additional irritation Diet. Regular as nayeli PPx. SCDs, hold pharm given SBP Code. Full Dispo. ADD 07/31, pending stabilization of above. Subjective: patient feels like he is progressing well Objective: Vital Signs Temp Pulse Resp BP Pulse Ox 36.9 C 70 18 143/75 H 93 07/30/17 15:49 07/30/17 18:06 07/30/17 15:49 07/30/17 18:06 07/30/17 15:49 Laboratory Results 07/25/17 04:24 07/30/17 04:56 07/29/17 07/30/17 07/31/17 05:59 05:59 05:59 Intake Total 1100 1400 600 Output Total 1225 1150 100 Balance -125 250 500 PT 15.5 SEC (12.0-15.0) H 07/25/17 04:24 INR 1.21 (0.83-1.16) H 07/25/17 04:24 - Time Spent With Patient Time Spent with Patient: greater than 35 minutes Time Spent with Patient: Greater than 35 minutes spent on this patients care, greater than 50% of time spent counseling, educating, and coordinating care regarding the above mentioned plan. - Physical Exam Constitutional: no apparent distress, appears nourished, not in pain, unkempt Ears, Nose, Mouth, Throat: hard of hearing Neurologic: AAOx3, No facial droop Psychiatric: interacting appropriately, not anxious, not encephalopathic, thought process linear, flat affect ICD10 Worksheet Patient Problems: Problems Problem Status Onset Hypertensive crisis Acute
[2017-07-31 05:51] LABS: ANION GAP 9 mEq/L (8-16); CALCIUM 8.3 mg/dL (8.5-10.4); CARBON DIOXIDE 26 mEq/l (22-31); CHLORIDE 101 mEq/L (97-110); CREATININE 0.8 mg/dL (0.7-1.3); GLOMERULAR FILTRATION RATE > 60; GLUCOSE 97 mg/dL (70-100); POTASSIUM 3.7 mEq/L (3.5-5.2); SODIUM 136 mEq/L (134-144)
[2017-07-31 07:41] VITALS: RESP 16
[2017-07-31] MEDS: PANTOPRAZOLE SODIUM 40 MG VIAL IVP SCH (09:15)
[2017-07-31] MEDS: CARVEDILOL 6.25 MG TAB PO SCH (09:15)
[2017-07-31] MEDS: ASPIRIN EC 81 MG TAB PO SCH (09:16)
--- NOTE | 2017-07-31 10:18 | SOAPPROG ---
SOAP Progress Note Assessment/Plan: Assessment/Plan: HTN: likely longstanding essential hypertension. Renal US reviewed with no MANSOOR. Pt now has SBP around 140s-160s on carvedilol alone and mental status has improved. - Would continue current dose of carvedilol. - Will have pt f/u in nephrology clinic with Dr. Palomino for further management. Hyponatremia: resolved, sodium now 136, no need for fluid restriction. Renal cysts: one cyst on each kidney noted to have mild complexity, would recommend repeat US in 6 months to evaluate for stability. Thank you for the interesting consult. Nephrology will sign off at this time, please call if you have any further questions or concerns. Subjective: No acute events overnight. Pt states that he still a little shakey but able to walk better. He has no more visual hallucinations or floaters now. He feels his thinking is clear. Objective: Vital Signs Temp Pulse Resp BP Pulse Ox 37.0 C 71 16 166/93 H 96 07/31/17 07:36 07/31/17 07:36 07/31/17 07:36 07/31/17 07:36 07/31/17 07:36 Laboratory Results 07/25/17 04:24 07/31/17 04:59 07/30/17 07/31/17 08/01/17 05:59 05:59 05:59 Intake Total 1400 975 Output Total 1150 900 300 Balance 250 75 -300 PT 15.5 SEC (12.0-15.0) H 07/25/17 04:24 INR 1.21 (0.83-1.16) H 07/25/17 04:24 General: alert and oriented, no acute distress Eyes; EOMI, PERRL OP: clear Ears: diminished hearing CV: RRR Resp: nonlabored respirations on RA Abd: Soft, ND Ext: no edema BLE Psych: cooperative, appropriate mood and affect ICD10 Worksheet Patient Problems: Problems Problem Status Onset Hypertensive crisis Acute
[2017-07-31 11:22] VITALS: BP 143/80; PULSE 64; TEMP 99; O2SAT 94
[2017-07-31] MEDS ORDERED: MAGNESIUM CITRATE 300 ML BOTTLE PO ONE (11:47)
[2017-07-31] MEDS ORDERED: BISACODYL 5 MG EC TAB PO ONE (11:47)
--- NOTE | 2017-07-31 14:59 | PDIAF ---
- Diagnosis Diagnosis: HTN emergency, encephalopathy Code Status: Full Code - Medication Management Discharge Medications: Medications to Continue on Transfer Herbals/Supplements -Info Only 1 ea PO DAILY 07/24/17 [Last Taken Unknown] Acetaminophen [Tylenol 325mg (*)] 650 mg PO Q4HRS PRN tab 07/31/17 [Last Taken Unknown] Calcium Carbonate [Tums 500MG (*)] 500 mg PO TID PRN tab.chew 07/31/17 [Last Taken Unknown] Carvedilol [Coreg (*)] 3.125 mg PO BIDMEAL tab 07/31/17 [Last Taken Unknown] Mbx Soln;Maalox/Diphen/Lido [Maalox/Diphenhydramine/Lido] 5 ml PO PRN PRN bottle 07/31/17 [Last Taken Unknown] Melatonin [Melatonin 3 MG (*)] 3 mg PO HS PRN tab 07/31/17 [Last Taken Unknown] Ondansetron Odt [Zofran Odt 4 mg (*)] 4 mg PO Q4HRS PRN tab 07/31/17 [Last Taken Unknown] Pantoprazole Sodium 40 mg PO DAILY #30 tablet.dr 07/31/17 [Last Taken Unknown] Polyethylene Glycol 3350 [Miralax 17 gm (*)] 17 gm PO DAILY PRN #30 pkt [Last Taken Unknown] Sennosides/Docusate Sodium [Senokot-S (OTC)] 1 each PO BID #60 tab 07/31/17 [ Last Taken Unknown] Sucralfate [Carafate 1gm/10ml Oral Liquid (*)] 1 gm PO ACHS PRN ml 07/31/17 [ Last Taken Unknown] Fci Antibiotics: NA Discharge Medications: Refer to the Discharge Home Medication list for PRN reason. PICC Care - Routine: N/A - Orders Services needed: Registered Nurse, Physical Therapy, Occupational Therapy, Speech Language Pathologist (Cognitive therapy) Isolation Type: None Oxygen: NA Diet Recommendation: no restrictions on diet Burch: Not applicable - Follow Up Care Current Providers and Referrals: NONE *PRIMARY CARE P,. [Primary Care Provider] - As per Instructions Sukh Palomino MD [Medical Doctor] - 3 days of d/c SNF/Rehab
--- NOTE | 2017-07-31 17:37 | ASDISCHSUM ---
Discharge Information Plan Status:Inpatient Rehab Medically Cleared to Leave: Discharge Date:07/31/2017 02:34 PM CM D/C Disposition:[facility] IP ADT D/C Disposition:[facility] IP Projected Discharge Date:07/31/2017 02:00 PM Transportation at D/C:Wheelchair Van Discharge Delay Reason: Follow-Up Date:07/31/2017 02:00 PM Discharge Slot: Final Diagnosis: Placement Information Referral Type:Rehabilitation Hospital Referral ID:[id number] Provider Name:[facility] Address 1:[address] Phone Number: Address 2: Fax Number: [facility]:[place] Selection Factors: State:[place] Patient Contact Information Contact Name:CORNELIUS Relationship: Address:[address] City:[place] Alternate Phone: State/Zip Code:[place] [address] Email: Financial Information Financial Class: Primary Plan Desc:MEDICARE INPATIENT Primary Plan Number:[id number] Secondary Plan Desc:[employer]/MDR SUPPLEMENT Secondary Plan Number:[id number] Assessment Information [facility] CM Progress Note CM Note CM Note Notes: 77 year old male admitted for HTN urgency, REILLY, Vomiting. He has a hx of HTN, Cataracs, [place], Prostate enlargement. Therapies have not evaluated patient. CM to follow for possible discharge needs. Date Signed: 07/26/2017 03:21 PM Electronically Signed By:Nancy Diaz LCSW [facility] CM Progress Note CM Note CM Note Notes: Spoke w/pt and re; [facility]. Long conversation, willing but feels pt will want to go home. 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 ASHLYN spoke wMD and Ama at [facility], will shoot for Thursday. Ama will run benefits, CM w/f in am. DC Plan: [facility] Date Signed: 07/29/2017 04:34 PM Electronically Signed By:Sophie Elena RN [facility] CM Progress Note CM Note CM Note Notes: had extensive conversation with pt and regarding [facility] and Ama from rehab came to see pt. Ama expressed to pt the benefits of the structured schedule at [facility] and that she anticipated a stay of 5-7 days. Pt's told CM that he would commit to 7 days. CM and to work out transportation in am. DC Plan: [facility] Thursday Date Signed: 07/30/2017 04:07 PM Electronically Signed By:Sophie Elena RN Case Management Discharge Plan Note Case Management Discharge Discharge Order Complete? Answers: Yes Patient to Obtain Answers: Other Notes: [facility] Medications Transportation Arranged Answers: Other Notes: [employer] Transport will Pick (Date 07/31/2017 02:00 PM & Time) Faxed Final Orders Answers: Yes Family Notified Answers: Yes Discharge Comments Notes: D/w , final orders faxed. Ama at [facility] notifiedSAMANTHA to call report. Date Signed: 07/31/2017 01:07 PM Electronically Signed By:Sophie Elena RN Intervention Information
--- NOTE | 2017-07-31 22:26 | PDDCSUM ---
Discharge Summary Discharge Summary: Date of admission: 07/24/17 Date of discharge: 07/31/17 Follow-up items: Outpatient ambulatory 24-hr blood pressure monitoring Discharge diagnoses: 1. HTN emergency 2. Acute encephalopathy 3. Acute hyponatremia 4. Chronic BPH 5. Acute esophagitis Consultations: Cardiology, Nephrology, Neurology Procedures: Brain MRI w/o acute infarct, diffuse microvascular ischemia CC: Acute nausea, vomiting Subjective: Feeling well at time of discharge, constipated, fatigued Physical exam: SBP 136-166, HR 70, Afeb, sat well on RA, AAOx3, pain 0/10, speech fluent, cooperative Labs: Cr 0.8, K 3.7, Na 136 Hospital course: 1. HTN emergency. Evidenced by SBP 210s w/ end organ failure (encephalopathy), likely 2/2 uncontrolled/untreated HTN and possibly acute rise in setting of microvascular ischemia, MR kathleen/ significant microvascular disease indicating his HTN has been untreated for quite some time. He was responsive to anti-HTN Rx, did experience a rapid reduction in SBP 2/2 hydralazine w/ acute somnolence as the effect, likely w/ some watershed ischemia but did not result in CVA on MRI. Initial anti-HTN Rx weaned to coreg 3.125 bid, and patient has tolerated past 3 doses w/ SBP range 136-166, effectively accomplishing the current goal of 140- 160. Over the following weeks, his goal should adjust down to SBP 140, but would avoid overtreating given his significant symptomatic response to SBP < 120. He and would like to undergo ambulatory 24-hr BP monitoring via [facility] with Dr. Palomino, and this can be arranged as an outpatient , to determine whether different doses should be used for AM vs. PM mgmt, and whether spikes in SBP are more temporally associated w/ acute stressors, as patient and believe. If so, behavioral modifications may be more appropriate as initial intervention. 2. Acute encephalopathy. Evidenced by confusion, somnolence, disrupted level of interactiveness, all of which are a change from his baseline and 2/2 acute HTN emergency, as well as potentially exacerbated by too rapid reduction in SBP which occurred w/ well-intentioned treatment. This has effected patient's appetite, sleep, and resulted in easy irritability, and during his hospitalization we focused on supportive/symptomatic care for certain discomforts like his esophageal discomfort (from vomiting), hiccups (thorazine PRN), and sleep (reduce interruptions o/n and provide melatonin PRN). At the time of discharge, his mentation seems to be at or very near baseline. 3. Hyponatremia. Acute, potentially 2/2 hypovolemia in setting of N/V, w/ some dilutional effect from volume resuscitation and lag in baroreceptor response, resulting in an SIADH component. Fluid restriction successful for complete correction, and able to liberate PO intake prior to DC. 4. Chronic BPH. Patient with urinary retention, resolved w/ need for ongoing straight cath. 5. Acute Esophagitis. 2/2 vomiting, started on PPI to reduce additional irritation. 6. Constipation. Ongoing at time of discharge, instructed by [facility] to hold on aggressive regimen prior to DC; recommend ongoing focus at [facility]. Meds at Discharge: Please see official discharge medication rec sheet, of note, Coreg 3.125 bid, Pantoprazole 40mg daily, bowel regimen. Time: > 30 minutes on direct patient care, as well as discharge planning and preparation.
== END 2017-07-31 14:34 | DRG 304 ==
LOC: F2W 20:00 → F2N 07-26 15:49 → F3E 07-28 15:44
PROVIDERS: ADMIT Hospitalist; ATTEND Hospitalist
DX: I16.1 Hypertensive emergency (principal); G93.49 Other encephalopathy; E87.1 Hypo-osmolality and hyponatremia; N40.1 Benign prostatic hyperplasia with lower urinary tract symptoms; K20.8 Other esophagitis; K59.00 Constipation, unspecified; E87.6 Hypokalemia; R33.9 Retention of urine, unspecified
CPT/HCPCS: 82088-90; 84244-90; 92507-GN; 92523-GN; 96374; 97110-GP; 97116-GP; 97161-GP; 97166-GO; 97530-GP; 97535-GO; G8978-GP-CK; G8979-GP-CJ; G8987-GO-CJ; G8988-GO-CI; G9165-GN-CK; G9166-GN-CI; J0360; J1644; J2250; J2405; J3010; Q9967

== ENCOUNTER 2017-07-30 11:34 | Inpatient (IN) | payer OTHER, MEDICARE ==
[2017-07-31] MEDS ORDERED: ONDANSETRON DISINTEGRATING 4 MG TAB PO PRN ×2 (15:30→15:54)
[2017-07-31] MEDS ORDERED: MELATONIN 3 MG TAB PO PRN ×2 (15:30→15:54)
[2017-07-31] MEDS ORDERED: MBX SOLN 30 ML BOTTLE PO PRN ×2 (15:30→15:54)
[2017-07-31] MEDS ORDERED: CALCIUM CARBONATE 500 MG CHEWABLE TAB PO PRN ×2 (15:30→15:54)
[2017-07-31] MEDS ORDERED: ACETAMINOPHEN 325 MG TAB PO PRN (15:30)
[2017-07-31] MEDS ORDERED: SUCRALFATE 1 GM/10 ML UDCUP PO PRN ×2 (15:30→15:54)
[2017-07-31] MEDS ORDERED: POLYETHYLENE GLYCOL 3350 17 GM PKT PO PRN ×2 (15:30→15:54)
[2017-07-31] MEDS ORDERED: BISACODYL 10 MG SUPP PR PRN ×2 (15:31→15:54)
[2017-07-31] MEDS ORDERED: TAMSULOSIN HCL 0.4 MG CAP PO SCH (15:45)
--- NOTE | 2017-07-31 16:10 | PDOREHIP ---
Admission [facility] - Admission - 3 Day Assessment Period Admission Date/Day 1: 07/31/17 Day 2: 08/01/17 Day 3: 08/02/17 - Active Diagnoses Comorbidities and Co-existing Conditions at Admission: 82822. None of the Above - Skin Conditions Unhealed Pressure Ulcer (1 or more/Stage 1 or >)-Admission: 0. No
--- NOTE | 2017-07-31 17:20 | GHP ---
[f rep st] HISTORY AND PHYSICAL POST ADMISSION PHYSICIAN EVALUATION AND REHABILITATION TREATMENT PLAN DATE OF ADMISSION: 07/31/2017 TIME OF EVALUATION: 1520. REFERRING FACILITY: [facility]. IMPAIRMENT GROUP: 2.1. DATE OF ONSET: 07/24/2017. REFERRING PHYSICIAN: Dr. Mills. CONSULTING PHYSICIANS: He was seen in consultation by Nephrology, Dr. Tolliver; Cardiology, Dr. Youssef, and Neurology Dr. Duval. REHABILITATION DIAGNOSES: Cognitive impairment and mobility deficits, status post hypertensive encephalopathy. ETIOLOGIC DIAGNOSIS: Nontraumatic brain dysfunction. HISTORY OF PRESENT ILLNESS: This patient was admitted to [facility] with a severe headache, nausea, and vomiting, associated with abnormal gait. He was diagnosed with malignant hypertension with blood pressure recorded as high as 217/111. He was initiated on a nicardipine intravenous drip, and he responded well. He was noted to be hyponatremic, which ultimately was attributed to likely elevated intracranial pressure and hypokalemia, which was likely due to vomiting. Hyponatremia corrected with intravenous fluids and a fluid restriction for several days, and ultimately resolved and the fluid restriction was discontinued. He was begun on a proton pump inhibitor, as well as sucralfate for esophageal discomfort after vomiting, and this discomfort has resolved. He received 1 dose of intravenous hydralazine for blood pressure above parameters and had an acute confusional episode subsequently. He had evaluation for a stroke including a brain MRI and head CTs that showed microvascular ischemic change, consistent with uncontrolled hypertension, and a nonacute punctate pontine hemorrhage. He had urinary retention with a bladder scan at 1 time greater than 500 and apparently had a difficult catheterization subsequently. Echocardiogram was done , which revealed mild aortic stenosis, LVH, ejection fraction of 73%, and diastolic dysfunction. He ultimately had adequate blood pressure control with systolics in the 130s to 160s and diastolics in the 70s to 90s on the last day before his discharge on a low dose of carvedilol alone. Previously had been he had been on losartan plus carvedilol. A renal ultrasound revealed a moderately complex cyst, but no signs of renovascular hypertension. Laboratory evaluation included evaluation of the renin aldosterone axis, which was not found to be abnormal. OTHER LABORATORIES AND STUDIES: urinalysis showed 2+ protein and trace glucose. 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 However, he had resolution of his hyponatremia. CBC showed an elevated white count, though the most recent was on 07/25/2017 was improved with a white blood cell count of 15.48. There was no left shift. There was a predominance of neutrophils and monocytes. Coagulation studies showed an INR of 1.21, PT of 15.5, and a D- dimer of 2.94. Serum chemistry showed hyponatremia with a sodium as low as 118. He also had hypokalemia with a potassium as low as 3.2. He had an elevated BNP at 1470, but otherwise was not showing signs or symptoms of heart failure. Lipid panel revealed a very high HDL at 73 and an LDL of 99. TSH was normal. PRECAUTIONS: He is a fall risk. He was noted to lose balance with term with turning. ACTIVE COMORBIDITIES: He has no active tier 1, tier 2 or tier 3 comorbidities. PAST MEDICAL HISTORY: 1. Longstanding hypertension. 2. Hearing loss. 3. Likely benign prostatic hypertrophy. PAST SURGICAL HISTORY: He denies any history of surgeries. PREHOSPITAL MEDICATIONS: He was not taking any medications. ADMISSION MEDICATIONS: 1. Acetaminophen 650 mg p.o. q.4 hours p.r.n. 2. Calcium carbonate 500 mg 3 times daily p.r.n. 3. Carvedilol 3.125 mg p.o. twice daily. 4. Maalox solution with diphenhydramine and lidocaine 5 mL p.o. p.r.n. abdominal discomfort. 5. Melatonin 3 mg p.o. at bedtime. 6. Ondansetron 4 mg p.o. q.4 hours p.r.n. 7. Pantoprazole 40 mg p.o. daily. 8. Polyethylene glycol 17 g p.o. daily p.r.n. 9. Senna/docusate 1 p.o. twice daily. 10. Sucralfate 1 g p.o. before meals and at bedtime p.r.n. ALLERGIES: There are no known drug allergies. FAMILY HISTORY: Noncontributory. PSYCHOSOCIAL HISTORY: He is retired. He lives with his . He has been active in his halfway. 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 He is a nonsmoker. REVIEW OF SYSTEMS: He has constipation x8 days. He had anorexia along with nausea and vomiting prior to his admission and then continued to have anorexia for the first several days of his hospitalization. He denies abdominal pain, and his appetite has returned. He reports that the sucralfate gave relief of abdominal discomfort, literally for only seconds, but the abdominal discomfort has resolved. He felt some lightheadedness, but no chaz vertigo on his drive over from [facility], but currently is without headache or lightheadedness. He denies vision changes, weakness, numbness or tingling of the extremities. He denies chest pain or palpitations. He denies dyspnea or cough. He denies dysuria. He has urinary frequency. At home he was accustomed to being up as often as 4 times at night, and he had a postvoid residual greater than 500 while in the hospital. He denies joint pain or joint swelling. He denies skin rash or skin breakdown. Otherwise, a 10-point review of systems is negative. PHYSICAL EXAMINATION: VITAL SIGNS: Vitals are not yet available in the chart. This morning at the hospital, blood pressure was 143/80; heart rate was 64; respiratory rate was 16; oxygen saturation was 94% on room air. Temperature was 37.2 degrees centigrade, and it is noted that he was sleeping when this blood pressure was taken. His weight is 63 kg for a body mass index of 21.8. GENERAL: This is a well-nourished, well-developed man, who appears younger than his chronologic age. He is cooperative and in no acute distress. HEENT: Extraocular movements are intact. Pupils are equal, round, and reactive to light. Mucous membranes are moist. Dentition is in good condition. He has uncrowded airway, Mallampati, class I. NECK: Supple. HEART: There is a regular rate and rhythm. There is a 2/6 systolic murmur heard best at the right sternal border. LUNGS: Clear to auscultation bilaterally. ABDOMEN: Soft, nontender, nondistended with normoactive bowel sounds. There is no palpable bladder. EXTREMITIES: There is no cyanosis, clubbing, or edema. Radial pulses are 2+ bilaterally. Dorsalis pedis pulses are 1+ bilaterally. NEUROLOGIC: He is alert and oriented to his situation, location, and month. He is off by 1 day on the date of the month. Cranial nerves 2-12 are grossly intact. There is no focal weakness. Sensation is intact to light touch. Plantar reflex is indeterminant bilaterally. There is no bradykinesia and no tremor. Current level of function per the pre-admission screen. Regarding diet, feeding , and swallowing: He was on a regular diet. He required setup. There was no dysphagia noted. For grooming, he required standby assist and voice cues. Dressing was accomplished with contact guard, seated. Regarding bladder, he was noted to be incontinent x1. He was continent of bowel. Bed mobility required standby assist. Transfers were accomplished with standby assist and voice cues to rise to a front-wheeled walker. He was noted to have a wide base of support. Balance required contact guard assist. Endurance was fair. He was able to ambulate 100 feet with contact guard and voice cues. He listed to the right, and he would lose his balance with turns. He was also noted to be able to ambulate 600 feet with a front-wheeled walker, contact guard assist, and voice cues. Regarding communication, he was noted to be hard of hearing. Regarding cognition, he was noted to have moderate impairment in attention, communication, and memory. He was considered a fall risk. IMPRESSION: This patient is a 77-year-old man who was hospitalized following headache, nausea, and vomiting, and diagnosed with hypertensive encephalopathy. He had some complications in his hospital course including altered mental status after 1 dose of intravenous hydralazine, which prompted an evaluation for cerebrovascular accident. MRI was consistent with hypertensive changes and a nonacute punctate left pontine hemorrhage. He was eventually stabilized, with renovascular hypertension and hyperaldosteronemia, ruled out, and finally blood pressure was controlled on adequately on a very low dose of carvedilol. Hyponatremia resolved completely, and he was off fluid restrictions. He was stable and ready for inpatient rehabilitation. His goal is to complete a rehabilitation stay and then discharge home with his and supportive services as needed. For a safe discharge it is anticipated that he will be independent with grooming and bed mobility, have modified independence for transfers, dressing, and ambulation with the least restrictive device on level and unlevel surfaces. His cognition will improve to allow him to be left alone at home safely for short periods of time. He will have therapy with Physical Therapy, Occupational Therapy, and Speech and Language Pathology for 60 minutes per day on 5-7 days of the week. His expected duration of stay is 5-7 days. It is anticipated that upon discharge he will continue to benefit from OT, SENIOR IOS DEVELOPER and PT on an outpatient basis. PLAN: 1. Cognitive deficits following hypertensive encephalopathy. Evaluation and treatment per Speech and Language Pathology. 2. Mobility deficits with impaired balance following hypertensive encephalopathy with possible contribution of a non-acute left pontine hemorrhage. Evaluation and treatment per PT and OT. 3. Hypertension has responded to a very low dose of carvedilol. This will be continued. It is thought that some of the complications following the hydralazine dose may have been due to overly rapid reduction of blood pressure. I have entered parameters for carvedilol to be held for a systolic pressure less than 140. 4. Urinary retention with possible BPH. We will have bladder scan for pre and postvoid residuals. Given his history of a difficult catheterization, I have sent a high threshold of 800 cc in the bladder for postvoid before attempting a catheterization. We will initiate tamsulosin today at 0.4 mg and monitor for improved lower urinary tract function. 5. History of nausea and vomiting. He no longer has symptoms of dyspepsia or abdominal pain. He never had any symptoms of dyspepsia or gastroesophageal reflux disorder prior to his hospitalization. We will not continue pantoprazole and will continue Maalox and calcium carbonate on a p.r.n. basis only. 6. Constipation with possible contribution of anorexia and vomiting. We will continue bowel program as ordered out of the hospital with scheduled senna/ docusate, and polyethylene glycol p.r.n. We will add bisacodyl suppository p.r.n. 7. Sleep-wake disturbance noted in the hospital. He has been prescribed melatonin. This can be continued for several days. However, it is anticipated that his sleep cycle will normalize and that after several days the melatonin can be discontinued. 8. Prophylaxis. He has ambulated 600 feet. He has no hemiparesis, and he is not at high risk for DVT. He will not receive pharmacologic prophylaxis. 9. Followup is planned with [facility], Dr. Sukh Palomino approximately 3 days following discharge from inpatient rehabilitation. He will need a repeat renal ultrasound in approximately 6 months regarding the renal cysts that were noted. He will need to establish with a primary care provider. /[id number]/MODL MTDD
[2017-07-31] MEDS ORDERED: CARVEDILOL 6.25 MG TAB PO SCH (18:00)
[2017-07-31] MEDS: SENNOSIDES/DOCUSATE SODIUM TAB PO SCH (19:28)
[2017-07-31] MEDS: CARVEDILOL 6.25 MG TAB PO SCH (19:28)
[2017-07-31] MEDS ORDERED: SENNOSIDES/DOCUSATE SODIUM TAB PO SCH (21:00)
[2017-08-01] MEDS: CARVEDILOL 6.25 MG TAB PO SCH ×2 (07:20→18:05)
[2017-08-01] MEDS: SENNOSIDES/DOCUSATE SODIUM TAB PO SCH ×3 (07:25→18:04)
[2017-08-01] MEDS ORDERED: Herbals/Supplements -Info Only PO SCH ×2 (09:00)
[2017-08-01] MEDS ORDERED: PANTOPRAZOLE SODIUM 40 MG TAB PO SCH (09:00)
[2017-08-01] MEDS: TAMSULOSIN HCL 0.4 MG CAP PO SCH ×2 (11:15→12:30)
[2017-08-01] MEDS: ACETAMINOPHEN 325 MG TAB PO PRN ×2 (12:27→17:53)
--- NOTE | 2017-08-01 12:31 | SOAPPROG ---
SOAP Progress Note Assessment/Plan: Assessment: * status post hospitalization for hypertensive urgency * Blood pressure little bit high this morning but back into the 0140-160 range * Had issues in the hospital possibly with symptoms from aggressive blood pressure lowering * Carvedilol may be causing his overall fatigue but would like to give it a few more days before switching to see if he can adjust * cognitive and mobility deficits * PT OT speech therapy * BPH/urinary retention * Encourage to take Flomax * Could increase dose if not enough affect * constipation * Bowel protocol * DVT prophylaxis * Ambulating well * Low risk 08/01/17 12:28 08/01/17 12:31 Subjective: Feels pretty wiped out after therapy and fatigue during the day. Postvoid residuals this morning was about 600. Patient refused Flomax but I have convinced him to take it Objective: Vital Signs Temp Pulse Resp BP Pulse Ox 37.1 C 76 16 151/89 H 94 08/01/17 08:47 08/01/17 08:47 08/01/17 08:47 08/01/17 09:06 08/01/17 08:47 07/31/17 08/01/17 08/02/17 05:59 05:59 05:59 Intake Total 240 240 Output Total 200 450 Balance 40 -210 Physical Exam - Physical Exam General Appearance: WD/WN, alert, no apparent distress Respiratory: lungs clear, No respiratory distress Cardiac/Chest: regular rate, rhythm, systolic murmur, No edema Abdomen: normal bowel sounds, non-tender, soft Neuro/Psych: alert, normal mood/affect ICD10 Worksheet Patient Problems: Problems Problem Status Onset Hypertensive crisis Acute
[2017-08-01] MEDS ORDERED: LISINOPRIL 2.5 MG TAB PO SCH (16:00)
[2017-08-02] MEDS: ACETAMINOPHEN 325 MG TAB PO PRN (07:45)
[2017-08-02] MEDS: CARVEDILOL 6.25 MG TAB PO SCH ×2 (08:02→18:04)
[2017-08-02] MEDS: SENNOSIDES/DOCUSATE SODIUM TAB PO SCH ×2 (08:02→17:56)
[2017-08-02] MEDS: TAMSULOSIN HCL 0.4 MG CAP PO SCH ×2 (10:35→13:11)
--- NOTE | 2017-08-02 21:34 | SOAPPROG ---
SOAP Progress Note Assessment/Plan: Assessment: * status post hospitalization for hypertensive urgency * Blood pressure better today * Had issues in the hospital possibly with symptoms from aggressive blood pressure lowering * fatigue is better. cont coreg for now * cognitive and mobility deficits * PT OT speech therapy * BPH/urinary retention * Encourage to take Flomax * I think that the retention may have been driving the BP. Encourages patient and to take the flomax * constipation * Bowel protocol * DVT prophylaxis * Ambulating well * Low risk * does not want any new meds introduced for a while 08/01/17 12:28 08/01/17 12:31 08/02/17 21:32 Subjective: feels a lot better today, more energy. bp better. less urinary retention Objective: Vital Signs Temp Pulse Resp BP Pulse Ox 36.7 C 77 16 138/88 H 95 08/02/17 20:00 08/02/17 20:00 08/02/17 20:00 08/02/17 20:00 08/02/17 20:00 08/01/17 08/02/17 08/03/17 05:59 05:59 05:59 Intake Total 240 1298 1750 Output Total 200 2200 550 Balance 40 -902 1200 Physical Exam - Physical Exam General Appearance: WD/WN, alert Respiratory: lungs clear, normal breath sounds, No respiratory distress Cardiac/Chest: regular rate, rhythm, No edema Neuro/Psych: alert, normal mood/affect, oriented x 3 ICD10 Worksheet Patient Problems: Problems Problem Status Onset Hypertensive crisis Acute
[2017-08-03] MEDS: CARVEDILOL 6.25 MG TAB PO SCH ×2 (07:38→18:02)
[2017-08-03] MEDS: SENNOSIDES/DOCUSATE SODIUM TAB PO SCH (07:41)
[2017-08-03] MEDS ORDERED: SENNOSIDES/DOCUSATE SODIUM TAB PO PRN (09:19)
--- NOTE | 2017-08-03 09:51 | SOAPPROG ---
SOAP Progress Note Assessment/Plan: Assessment: # Cognitive deficits following hypertensive encephalopathy. * Deficits to inference/abstraction, pathfinding, attention to detail, executive function. Impulsive. * Continue Speech and Language Pathology. 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 * Initial FIM 98 on 08/03/17. Hernandez balance inventory 44/56. Ambulates with standby assist to contact guard assist with front wheeled walker. Climbed 12 stairs 1 rail standby assist. She accomplished car transfer with standby assist. Independent for dressing and independence to supervision level for ADLs overall. * Continue PT and OT. # Hypertension has responded to a very low dose of carvedilol. * Continue carvedilol; hold for systolic blood pressure less than 140. * Query whether urinary retention plus life stress may have contributed to hypertensive urgency. * Eventual blood pressure goal is certainly less than 140/90 and probably 120/80 ; discussed with patient and . # Urinary retention with possible BPH. * Residuals have been in the range of 425-1000 cc. Nocturia has been improved on tamsulosin x2 doses. * Due to concern regarding intraoperative floppy iris syndrome, will discontinue tamsulosin. Gave a prescription for alfuzosin. Advised discussion with airport maintenance laborer regarding use of alpha blockers prior to cataract surgery. # History of nausea and vomiting. * Resolved. * No dyspepsia or abdominal pain. No history of dyspepsia or gastroesophageal reflux disorder. Discontinue pantoprazole; continue Maalox and calcium carbonate on a p.r.n. basis only. # Constipation with possible contribution of anorexia and vomiting. * Resolved. * Change laxatives to p.r.n. starting 08/03/2017. # Sleep-wake disturbance noted in the hospital. * Resolved. Discontinue melatonin 08/03/2017. # Prophylaxis. He has ambulated 600 feet. He has no hemiparesis, and he is not at high risk for DVT. He will not receive pharmacologic prophylaxis. Attended staffing, 15 min. Discussed with case management, nursing, dietitian, PT, OT, OVERNIGHT STOCKER. Set discharge date for 08/05/2015. He will have outpatient PT and OVERNIGHT STOCKER. He will follow up with Ophthalmology; needs to establish with PCP; follow up with Nephrology and Urology as well. Followup is planned with manager internet, Dr. Sukh Palomino approximately 3 days following discharge from inpatient rehabilitation. He will need a repeat renal ultrasound in approximately 6 months regarding the renal cysts that were noted. He will need to establish with a primary care provider. Plan: 08/03/17 09:50 08/03/17 12:11 Subjective: Patient and are cautious regarding the use of tamsulosin due to risk of intraoperative floppy iris syndrome with upcoming cataract surgery. He reports that urinary frequency has decreased at night from 4 x 2 to 3 times. Otherwise without complaint. Sleeping well, not in pain. Objective: Vital Signs Temp Pulse Resp BP Pulse Ox 36.6 C 79 18 166/93 H 94 08/03/17 08:00 08/03/17 08:00 08/03/17 08:00 08/03/17 08:00 08/03/17 08:00 08/02/17 08/03/17 08/04/17 05:59 05:59 05:59 Intake Total 1298 1750 Output Total 2200 1450 Balance -902 300 - Time Spent With Patient Time Spent With Patient: Greater than 35 min floor time today, including more than 50% of time in coordination of care during staffing meeting, and counseling patient and . Physical Exam - Physical Exam General Appearance: WD/WN, alert, no apparent distress Respiratory: No respiratory distress, No accessory muscle use Skin: normal color, warm/dry Neuro/Psych: no motor/sensory deficits, alert, normal mood/affect, oriented x 3 ICD10 Worksheet Patient Problems: Problems Problem Status Onset Hypertensive crisis Acute
[2017-08-03] MEDS: TAMSULOSIN HCL 0.4 MG CAP PO SCH (12:36)
[2017-08-03] MEDS: ACETAMINOPHEN 325 MG TAB PO PRN (18:03)
[2017-08-04] MEDS: CARVEDILOL 6.25 MG TAB PO SCH ×2 (07:39→17:56)
[2017-08-04] MEDS ORDERED: ALFUZOSIN 10MG PO SCH (09:00)
[2017-08-04] MEDS ORDERED: NON-FORMULARY NEW DRUG PO SCH (09:00)
--- NOTE | 2017-08-04 12:15 | SOAPPROG ---
SOAP Progress Note Assessment/Plan: Assessment: # Cognitive deficits following hypertensive encephalopathy. * Deficits to inference/abstraction, pathfinding, attention to detail, executive function. Impulsive. * Continue Speech and Language Pathology. 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 * Initial FIM 98 on 08/03/17. Hernandez balance inventory 44/56. Ambulates with standby assist to contact guard assist with front wheeled walker. Climbed 12 stairs 1 rail standby assist. She accomplished car transfer with standby assist. Independent for dressing and independence to supervision level for ADLs overall. * Continue PT and OT. # Hypertension has responded to a very low dose of carvedilol. * Continue carvedilol; hold for systolic blood pressure less than 140. * Query whether urinary retention plus life stress may have contributed to hypertensive urgency. * Eventual blood pressure goal is certainly less than 140/90 and probably 120/80 ; discussed with patient and . # Urinary retention with possible BPH. * Residuals have been in the range of 425-1000 cc. Nocturia has been improved on tamsulosin x2 doses. No alpha-karly X 2 days as of 08/04/17 and residual this afternoon 628 cc, with BP 167/98. D/W Cyndi by phone 08/04/17. Agrees to proceed with alfuzosin. * Due to concern regarding intraoperative floppy iris syndrome, will discontinue tamsulosin. Gave a prescription for alfuzosin 08/03/17. Advised discussion with director of diagnostic imaging regarding use of alpha blockers prior to cataract surgery. # History of nausea and vomiting. * Resolved. * No dyspepsia or abdominal pain. No history of dyspepsia or gastroesophageal reflux disorder. Discontinue pantoprazole; continue Maalox and calcium carbonate on a p.r.n. basis only. # Constipation with possible contribution of anorexia and vomiting. * Resolved. * Change laxatives to p.r.n. starting 08/03/2017. # Sleep-wake disturbance noted in the hospital. * Resolved. Discontinue melatonin 08/03/2017. # Prophylaxis. He has ambulated 600 feet. He has no hemiparesis, and he is not at high risk for DVT. He will not receive pharmacologic prophylaxis. Discharge 08/05/2015. He will have outpatient PT and [facility]. He will follow up with Ophthalmology; needs to establish with PCP; follow up with Nephrology and Urology as well. Followup is planned with uranium processing supervisor, Dr. Sukh Palomino approximately 3 days following discharge from inpatient rehabilitation. He will need a repeat renal ultrasound in approximately 6 months regarding the renal cysts that were noted. He will need to establish with a primary care provider. 08/04/17 13:04 Subjective: No complaints. Slept well. Not in pain. Reports nocturia x2 overnight. Says he had a "relapse" in terms of balance but that the therapists have encouraged him to slow down. Objective: Vital Signs Temp Pulse Resp BP Pulse Ox 36.7 C 72 18 144/77 H 95 08/03/17 18:09 08/04/17 09:15 08/04/17 08:00 08/04/17 09:15 08/04/17 08:00 08/03/17 08/04/17 08/05/17 05:59 05:59 05:59 Intake Total 1750 1470 Output Total 1450 1400 Balance 300 70 - Time Spent With Patient Time Spent With Patient: Greater than 35 min floor time today, including discussions with patient and phone conversation with regarding use of alfuzosin for urinary retention. Physical Exam - Physical Exam General Appearance: WD/WN, alert, no apparent distress Respiratory: normal breath sounds, No crackles, No rhonchi, No wheezing Cardiac/Chest: regular rate, rhythm, systolic murmur (RSB 2/3) Neuro/Psych: no motor/sensory deficits, alert, normal mood/affect, oriented x 3 ICD10 Worksheet Patient Problems: Problems Problem Status Onset Hypertensive crisis Acute
[2017-08-04] MEDS: ALFUZOSIN 10MG PO SCH (14:21)
--- NOTE | 2017-08-04 14:25 | PDOREHIP ---
Admission [facility] - Admission - 3 Day Assessment Period Admission Date/Day 1: 07/31/17 Day 2: 08/01/17 Day 3: 08/02/17 Discharge [facility] - Discharge - 3 Day Assessment Period 2 Days Prior to Anticipated Discharge Date: 08/03/17 1 Day Prior to Anticipated Discharge Date: 08/04/17 Anticipated Discharge Date: 08/05/17 - Discharge Skin Conditions Unhealed Pressure Ulcer (1 or more/Stage 1 or >)-Discharge: 0. No
[2017-08-05 06:47] VITALS: RESP 16; TEMP 98.6; O2SAT 95
[2017-08-05] MEDS: ALFUZOSIN 10MG PO SCH (07:55)
[2017-08-05] MEDS: CARVEDILOL 6.25 MG TAB PO SCH (07:56)
[2017-08-05 07:58] VITALS: BP 161/94; PULSE 66
[2017-08-05] MEDS ORDERED: ALFUZOSIN 10MG PO SCH (09:00)
--- NOTE | 2017-08-05 09:54 | PDDCSUM ---
Discharge Summary Discharge Summary: Name: Michele Barajas Admission date: 07/31/2017 Discharge date: 08/05/2017 Discharging physician: Shakeel Ortiz MD, Dr. 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 Syed dated 07/31/2017 for full details. 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 The ruled out renal vascular hypertension and hyperaldosteronism and blood pressure was controlled on a low-dose of carvedilol. He was admitted for impairments in mobility, self-care, and cognition on inpatient rehabilitation. Rehabilitation course: He made good overall progress in inpatient rehabilitation and ultimately is discharging home with outpatient therapies requiring cuing for ADLs, help with problem solving and memory issues, and cues in mobility with a front wheeled walker. His hypertension was somewhat difficult to control but was found to be tightly correlated with urinary retention and when he had adequate treatment of urinary retention with alpha blockers his hypertension was well controlled. He is discharging on alfuzosin to minimize the effects of urinary retention on hypertension and also due to concern for intraoperative floppy iris syndrome given he has an upcoming cataract surgery. Other issues including nausea and vomiting and constipation resolved. Discharge plan: Discharged home with family with outpatient therapies Medications at discharge: Alfuzosin 10 mg daily Carvedilol 3.125 mg p.o. twice daily Maalox Calcium carbonate 500 mg p.o. three times daily p.r.n. Tylenol 650 mg p.o. q.4 hours p.r.n. for pain Pending studies: None Issues to be addressed at follow-up: Follow up with Urology for urinary retention, primary care physician for blood pressure management, ophthalmology for cataract surgery. Therapy will continue. Follow up: As above
== END 2017-08-05 12:51 | disposition home or self-care (01) | DRG 79 ==
LOC: BREH 07-31 14:43 → UNDODISIN 07-31 15:47
PROVIDERS: ADMIT Internal Medicine; ATTEND Internal Medicine
DX: I67.4 Hypertensive encephalopathy (principal); R41.843 Psychomotor deficit; R41.840 Attention and concentration deficit; R41.3 Other amnesia; H91.93 Unspecified hearing loss, bilateral; N40.1 Benign prostatic hyperplasia with lower urinary tract symptoms; R33.9 Retention of urine, unspecified; K59.00 Constipation, unspecified; Z86.73 Personal history of transient ischemic attack (TIA), and cerebral infarction without residual deficits
CPT/HCPCS: 92507-GN; 92522-GN; 97110-GP; 97112-GP; 97116-GP; 97161-GP; 97165-GO; 97530-GO; 97530-GP; 97535-GO